=== PATIENT | male | born 1965 | race Caucasian/White ===

== ENCOUNTER → 2016-07-07 | Outpatient (CLI) | payer BC ==
[2016-07-07 18:37] LABS: HCT 43.4 % (39.0-53.0); HDW 2.74; HGB 14.8 gm/dL (13.0-17.5); MCH 29.5 pg (25.0-35.0); MCHC 34.2 g/dL (31.0-37.0); MCV 86.2 fL (80.0-100.0); Mean Platelet Volume 8.5; RBC 5.03 m/uL (4.30-5.90); RDW 13.4 % (11.5-15.5); WBC 8.8 k/uL (3.8-10.6)
[2016-07-07 18:49] LABS: ALT 38 U/L (21-72); AST 25 U/L (17-59); Alkaline Phosphatase 67 U/L (38-126); Anion Gap 9 mmol/L; Blood Urea Nitrogen 17 mg/dL (9-20); Calcium 9.4 mg/dL (8.4-10.2); Carbon Dioxide 28 mmol/L (22-30); Chloride 106 mmol/L (98-107); Glucose 90 mg/dL (74-99); Non-African American GFR(MDRD) >60 (>60 ml/min/1.73 sqM); Potassium 3.8 mmol/L (3.5-5.1); Sodium 143 mmol/L (137-145); Total Bilirubin 0.4 mg/dL (0.2-1.3); Total Protein 7.3 g/dL (6.3-8.2)
[2016-07-07 20:03] LABS: Appearance,Urine Clear (Clear); Bilirubin,Urine Negative (Negative); Glucose,Urine (UA) Negative (Negative); Ketones,Urine Negative (Negative); Leukocyte Esterase,Urine Negative (Negative); Nitrite,Urine Negative (Negative); Protein,Urine Negative (Negative); Specific Gravity,Urine 1.017 (1.001-1.035); UA Billing (MACRO vs. MICRO) CHEM; Urobilinogen,Urine <2.0 mg/dL (<2.0)
--- NOTE | 2016-07-07 20:20 | CT ---
EXAMINATION TYPE: CT abdomen pelvis w con DATE OF EXAM: 07/07/2016 8:09 PM COMPARISON: NONE HISTORY: RLQ PAIN, R/O APPENDICITIS CT DLP: 1776.8 mGycm Automated exposure control for dose reduction was used. TECHNIQUE: Helical acquisition of images was performed from the lung bases through the pelvis. CONTRAST: Performed with Oral Contrast and with IV Contrast, patient injected with 100 mL of Omnipaque 300. FINDINGS: Lung bases are clear. There is no pleural effusion. Heart size is normal. Liver spleen pancreas appear normal. Bile ducts are not dilated. Gallbladder is contracted. There is no adrenal mass. Kidneys show satisfactory contrast opacification. There is no hydronephrosi s. There is no retroperitoneal adenopathy. There is no ascites. I see no intestinal wall thickening. There are no dilated loops. Bladder distends smoothly. Appendix appears normal. The bony structures a ppear intact. There are spondylotic changes in the lumbar spine. There is multilevel lumbar spinal st enosis. IMPRESSION: NORMAL APPENDIX. NO SIGN OF ACUTE ABDOMEN AND PELVIS. THERE IS MULTILEVEL SEVERE LUMBAR SPINAL STENOSIS.
== END | disposition home or self-care (01) ==
LOC: RADCTMAIN 18:07
PROVIDERS: ATTEND Family Medicine
DX: R10.31 Right lower quadrant pain (principal)
CPT/HCPCS: 80053; 85027; 81003; 74177; 36415; Q9967

== ENCOUNTER 2021-03-20 12:42 | Inpatient (IN) | payer BC ==
[2021-03-20] MEDS ORDERED: ACETAMINOPHEN TAB 325 MG TAB PO STA (13:17)
[2021-03-20] MEDS ORDERED: SODIUM CHLORIDE 0.9% 500 ML 500 ML IV STA (13:47)
[2021-03-20] MEDS ORDERED: ASPIRIN 81 MG PO STA (13:48)
--- NOTE | 2021-03-20 13:55 | ED ---
General Adult HPI - General Chief complaint: Shortness of Breath Stated complaint: COVID+, SOB Time Seen by Provider: 03/20/21 13:40 Source: patient, RN notes reviewed, old records reviewed Mode of arrival: EMS Limitations: no limitations - History of Present Illness Initial comments: 55-year-old male, alert and oriented 4, presents to emergency room with difficulty in breathing worsening over the past 10 days. Patient states that he was diagnosed with Covid on March 18. He denies any nausea vomiting or diarrhea but does state that he has left-sided chest pain. He does have a history of hypertension. He was directed by his PCP to schedule a stress test with Dr. Amador but has not done so. His primary care doctor is Dr. Rajput. -: days(s) (10) Location: chest Radiation: non-radiation Consistency: constant Improves with: none Associated Symptoms: cough, shortness of breath - Related Data Home Medications Medication Instructions Recorded Confirmed Essential-1 Multivitamin 1 tab PO DAILY 03/20/21 03/20/21 Glucosamine-Chondroitin 2814-6473 1 tab PO DAILY 03/20/21 03/20/21 Mg amLODIPine [Norvasc] 5 mg PO DAILY 03/20/21 03/20/21 Allergies Allergy/AdvReac Type Severity Reaction Status Date / Time No Known Allergies Allergy Verified 03/20/21 15:43 Review of Systems ROS Statement: Those systems with pertinent positive or pertinent negative responses have been documented in the HPI. ROS Other: All systems not noted in ROS Statement are negative. Past Medical History Past Medical History: Hypertension, Prostate Disorder Additional Past Medical History / Comment(s): headaches History of Any Multi-Drug Resistant Organisms: None Reported Past Surgical History: Orthopedic Surgery Additional Past Surgical History / Comment(s): ACL repair rt knee Past Anesthesia/Blood Transfusion Reactions: No Reported Reaction Past Psychological History: No Psychological Hx Reported Smoking Status: Never smoker Past Alcohol Use History: Occasional Past Drug Use History: Marijuana - Past Family History Mother Family Medical History: Cancer General Exam Limitations: no limitations General appearance: alert, in distress (Dyspneic) Head exam: Present: atraumatic, normocephalic, normal inspection Eye exam: Present: normal appearance, EOMI ENT exam: Present: normal exam, normal oropharynx, mucous membranes moist Neck exam: Present: normal inspection, full ROM. Absent: tenderness, meningismus, lymphadenopathy Respiratory exam: Present: normal lung sounds bilaterally. Absent: respiratory distress, wheezes, rales, rhonchi, stridor Cardiovascular Exam: Present: tachycardia, irregular rhythm, normal heart flo nds. Absent: systolic murmur, diastolic murmur, rubs, gallop, clicks, JVD GI/Abdominal exam: Present: soft, normal bowel sounds. Absent: distended, tenderness, guarding, rebound, rigid Extremities exam: Present: normal inspection, full ROM, normal capillary refill. Absent: tenderness, pedal edema, joint swelling, calf tenderness Back exam: Present: normal inspection, full ROM. Absent: tenderness, CVA tenderness (R), CVA tenderness (L), rash noted Neurological exam: Present: alert, oriented X3 Psychiatric exam: Present: normal affect, normal mood, anxious Skin exam: Present: warm, dry, intact, normal color. Absent: rash Course Vital Signs 03/20/21 03/20/21 03/20/21 13:03 13:08 14:09 Temperature 102.4 F H Pulse Rate 104 H 120 H Respiratory 16 18 Rate Blood Pressure 157/88 148/97 O2 Sat by Pulse 98 97 Oximetry 03/20/21 03/20/21 15:00 17:04 Temperature 102.7 F H 99 F Pulse Rate 100 Respiratory 18 Rate Blood Pressure 148/97 O2 Sat by Pulse 97 Oximetry EKG Findings - EKG Results: EKG shows: atrial fibrillation (Ventricular rate of 124, QRS 0.84, QTC 0.462, atrial fibrillation rapid ventricular response) Medical Decision Making - Medical Decision Making This is a 55-year-old male, alert and oriented 4, presenting to the emergency room with worsening dyspnea over the past 10 days. Patient states that he t ested positive for coronavirus on March 18. He states his breathing has been getting significantly worse over the last few days. He also complains of left- sided chest pain. He does have a history of hypertension and is on amlodipine 5 mg. He denies any other medical history. He states that he was supposed to schedule a stress test with Dr. Amador in cardiology but he hasn't done that yet. There is no evidence of leukocytosis. His d-dimer is elevated at 1.58, potassium is 3.3, troponin is negative at 0.012, EKG shows atrial fibrillation with a rate of 120. CT imaging of the chest shows no evidence of pulmonary embolism. There is bilateral moderate patchy multifocal pneumonia. Patient was given a gram of Rocephin for community-acquired pneumonia. He was started on low-dose heparin for the new onset atrial fibrillation. Patient did have a fever which resolved and his heart rate normalized. He will be admitted to the hospital for pneumonia, new onset atrial fibrillation, with runs of ventricular tachycardia, and coronavirus. Case was discussed with Dr. Farooq. - Lab Data Result diagrams: 03/20/21 14:02 03/20/21 14:02 Lab Results 03/20/21 03/20/21 03/20/21 Range/Units 14:02 14:02 14:02 WBC 5.3 (3.8-10.6) k/uL RBC 5.10 (4.30-5.90) m/uL Hgb 15.5 (13.0-17.5) gm/dL Hct 43.7 (39.0-53.0) % MCV 85.7 (80.0-100.0) fL MCH 30.4 (25.0-35.0) pg MCHC 35.5 (31.0-37.0) g/dL RDW 12.7 (11.5-15.5) % Plt Count 110 L (150-450) k/uL MPV 10.7 Neutrophils % 79 % Lymphocytes % 14 % Monocytes % 5 % Eosinophils % 0 % Basophils % 0 % Neutrophils # 4.2 (1.3-7.7) k/uL Lymphocytes # 0.8 L (1.0-4.8) k/uL Monocytes # 0.3 (0-1.0) k/uL Eosinophils # 0.0 (0-0.7) k/uL Basophils # 0.0 (0-0.2) k/uL PT 10.5 (9.0-12.0) sec INR 1.0 (<1.2) APTT 24.6 (22.0-30.0) sec D-Dimer 1.58 H (<0.60) mg/L FEU Sodium 133 L (137-145) mmol/L Potassium 3.3 L (3.5-5.1) mmol/L Chloride 102 (98-107) mmol/L Carbon Dioxide 20 L (22-30) mmol/L Anion Gap 11 mmol/L BUN 12 (9-20) mg/dL Creatinine 0.79 (0.66-1.25) mg/dL Est GFR (CKD-EPI)AfAm >90 (>60 ml/min/1.73 sqM) Est GFR (CKD-EPI)NonAf >90 (>60 ml/min/1.73 sqM) Glucose 122 H (74-99) mg/dL Plasma Lactic Acid Chase (0.7-2.0) mmol/L Calcium 8.3 L (8.4-10.2) mg/dL Magnesium 1.9 (1.6-2.3) mg/dL Total Bilirubin 0.7 (0.2-1.3) mg/dL AST 63 H (17-59) U/L ALT 46 (4-49) U/L Alkaline Phosphatase 52 (38-126) U/L Troponin I (0.000-0.034) ng/mL NT-Pro-B Natriuret Pep pg/mL Total Protein 6.1 L (6.3-8.2) g/dL Albumin 3.2 L (3.5-5.0) g/dL 03/20/21 03/20/21 03/20/21 Range/Units 14:02 14:02 14:51 WBC (3.8-10.6) k/uL RBC (4.30-5.90) m/uL Hgb (13.0-17.5) gm/dL Hct (39.0-53.0) % MCV (80.0-100.0) fL MCH (25.0-35.0) pg MCHC (31.0-37.0) g/dL RDW (11.5-15.5) % Plt Count (150-450) k/uL MPV Neutrophils % % Lymphocytes % % Monocytes % % Eosinophils % % Basophils % % Neutrophils # (1.3-7.7) k/uL Lymphocytes # (1.0-4.8) k/uL Monocytes # (0-1.0) k/uL Eosinophils # (0-0.7) k/uL Basophils # (0-0.2) k/uL PT (9.0-12.0) sec INR (<1.2) APTT (22.0-30.0) sec D-Dimer (<0.60) mg/L FEU Sodium (137-145) mmol/L Potassium (3.5-5.1) mmol/L Chloride (98-107) mmol/L Carbon Dioxide (22-30) mmol/L Anion Gap mmol/L BUN (9-20) mg/dL Creatinine (0.66-1.25) mg/dL Est GFR (CKD-EPI)AfAm (>60 ml/min/1.73 sqM) Est GFR (CKD-EPI)NonAf (>60 ml/min/1.73 sqM) Glucose (74-99) mg/dL Plasma Lactic Acid Chase 2.0 (0.7-2.0) mmol/L Calcium (8.4-10.2) mg/dL Magnesium (1.6-2.3) mg/dL Total Bilirubin (0.2-1.3) mg/dL AST (17-59) U/L ALT (4-49) U/L Alkaline Phosphatase (38-126) U/L Troponin I <0.012 (0.000-0.034) ng/mL NT-Pro-B Natriuret Pep 172 pg/mL Total Protein (6.3-8.2) g/dL Albumin (3.5-5.0) g/dL Disposition Clinical Impression: New onset atrial fibrillation, Pneumonia, Ventricular tachycardia seen on director of cardiac cath lab, COVID-19 Disposition: ADMITTED IP TO THIS HOSP Decision Date: 03/20/21 Decision Time: 15:07
[2021-03-20 14:20] LABS: Basophils % (A) 0 %; Eosinophils % (A) 0 %; HCT 43.7 % (39.0-53.0); HGB 15.5 gm/dL (13.0-17.5); Lymphocytes # (A) 0.8 k/uL (1.0-4.8); Lymphocytes % (A) 14 %; MCH 30.4 pg (25.0-35.0); MCHC 35.5 g/dL (31.0-37.0); MCV 85.7 fL (80.0-100.0); Mean Platelet Volume 10.7; Monocytes # (A) 0.3 k/uL (0-1.0); Monocytes % (A) 5 %; Neutrophils # (A) 4.2 k/uL (1.3-7.7); Neutrophils % (A) 79 %; Platelet Count 110 k/uL (150-450); RDW 12.7 % (11.5-15.5); WBC 5.3 k/uL (3.8-10.6)
--- NOTE | 2021-03-20 14:28 | XR ---
EXAMINATION TYPE: XR chest 2V DATE OF EXAM: 03/20/2021 COMPARISON: None INDICATION: Dyspnea TECHNIQUE: Single frontal view of the chest is obtained. FINDINGS: The heart size is normal. The pulmonary vasculature is normal. Patchy infiltrates are present through the bilateral lung peripheries. Findings can be associated wit h atypical pneumonia. IMPRESSION: 1. Atypical pneumonia
[2021-03-20 14:32] LABS: ALT 46 U/L (4-49); AST 63 U/L (17-59); African American GFR (CKD) >90 (>60 ml/min/1.73 sqM); Albumin 3.2 g/dL (3.5-5.0); Alkaline Phosphatase 52 U/L (38-126); Anion Gap 11 mmol/L; Blood Urea Nitrogen 12 mg/dL (9-20); Calcium 8.3 mg/dL (8.4-10.2); Carbon Dioxide 20 mmol/L (22-30); Chloride 102 mmol/L (98-107); Glucose 122 mg/dL (74-99); Magnesium 1.9 mg/dL (1.6-2.3); Non-African American GFR(CKD) >90 (>60 ml/min/1.73 sqM); Potassium 3.3 mmol/L (3.5-5.1); Sodium 133 mmol/L (137-145); Total Bilirubin 0.7 mg/dL (0.2-1.3); Total Protein 6.1 g/dL (6.3-8.2)
[2021-03-20] MEDS ORDERED: cefTRIAXone IN SWFI 1,000 MG/10 ML SYRINGE IVP STA (14:37)
[2021-03-20 14:38] LABS: Partial Thromboplastin Time 24.6 sec (22.0-30.0); Prothrombin Time 10.5 sec (9.0-12.0)
[2021-03-20] MEDS ORDERED: POTASSIUM CHLORIDE ER 20 MEQ TAB.ER PO STA (14:46)
[2021-03-20] MEDS ORDERED: HEPARIN SODIUM 1,000 UN/ML (10ML VL) IV ONE (15:00)
[2021-03-20] MEDS ORDERED: HEPARIN SODIUM 1,000 UN/ML (10ML VL) IV PRN (15:00)
[2021-03-20] MEDS ORDERED: IBUPROFEN 800 MG TAB PO STA (15:02)
[2021-03-20] MEDS ORDERED: HEPARIN SOD,PORK IN 0.45% NACL 25,000 UNIT in 0.45% NACL 1 250ML.BAG IV SCH (15:15)
[2021-03-20] MEDS ORDERED: PANTOPRAZOLE 40 MG/10 ML VIAL IVP STA (15:16)
[2021-03-20] MEDS ORDERED: IBUPROFEN 400 MG TAB PO PRN (15:21)
[2021-03-20] MEDS ORDERED: NALOXONE 0.4 MG/ML 1 ML VIAL IV PRN (15:21)
[2021-03-20] MEDS ORDERED: 0.9% NACL WITH KCL 20 MEQ/L 1,000 ML IV SCH (16:00)
--- NOTE | 2021-03-20 16:56 | CT ---
EXAMINATION TYPE: CT chest angio for PE DATE OF EXAM: 03/20/2021 COMPARISON: None HISTORY: Cough and shortness of breath. CT DLP: 615.1 mGycm Automated exposure control for dose reduction was used. CONTRAST: Performed with IV Contrast, patient injected with 100 mL of Isovue 370. There are 3-D post processed images. There are patchy bilateral pulmonary interstitial and air space infiltrates in the upper and lower lo bes bilaterally. There is no mediastinal adenopathy. There are no hilar masses. There are bilateral e nlarged multiple bronchial lymph nodes up to 1 cm. There is normal contrast opacification of the pulmonary arteries. There are no filling defects. The t horacic aorta is intact. There is no aneurysm or dissection. Thoracic spine is intact. Sternum is int act. The upper abdominal soft tissues are intact. IMPRESSION: No evidence of pulmonary embolism. Bilateral moderate patchy multifocal pneumonia.
[2021-03-21] MEDS: MAG HYDROX/AL HYDROX/SIMETH 30 ML CUP PO PRN (01:43)
[2021-03-21] MEDS ORDERED: IOPAMIDOL CONTRAST (ORAL USE) VIAL PO PRN (03:46)
[2021-03-21] MEDS: PANTOPRAZOLE 40 MG/10 ML VIAL IVP SCH ×2 (04:01→20:17)
[2021-03-21] MEDS: HYDROmorphone 1 MG/ML 1 ML SYRINGE IVP PRN ×3 (04:01→22:46)
[2021-03-21 04:16] LABS: Basophils % (A) 0 %; Eosinophils % (A) 0 %; HCT 42.5 % (39.0-53.0); HGB 14.8 gm/dL (13.0-17.5); Lymphocytes # (A) 0.5 k/uL (1.0-4.8); Lymphocytes % (A) 8 %; MCH 30.6 pg (25.0-35.0); MCHC 34.9 g/dL (31.0-37.0); MCV 87.6 fL (80.0-100.0); Mean Platelet Volume 11.1; Monocytes # (A) 0.2 k/uL (0-1.0); Monocytes % (A) 3 %; Neutrophils # (A) 5.4 k/uL (1.3-7.7); Neutrophils % (A) 88 %; Platelet Count 119 k/uL (150-450); RBC 4.85 m/uL (4.30-5.90); RDW 12.8 % (11.5-15.5); WBC 6.2 k/uL (3.8-10.6)
--- NOTE | 2021-03-21 04:36 | CT ---
EXAMINATION TYPE: CT abdomen pelvis wo con DATE OF EXAM: 03/21/2021 COMPARISON: 07/07/2016 HISTORY: abd pain with distension CT DLP: 1309 mGycm Automated exposure control for dose reduction was used. There is extensive patchy interstitial and airspace infiltrate at the visualized lung bases. Heart is borderline enlarged. There is no pericardial effusion. There is no pleural effusion. Liver spleen pancreas stomach appear intact. Gallbladder appears normal. The bile ducts are not dilat ed. There is no adrenal mass. Kidneys have normal size. There is some contrast in the kidneys from recent CT scan. There is no hydronephrosis. Ureters are not dilated. There is no retroperitoneal adenopathy. Appendix is posterior and appears normal. Bladder distends smoothly. There is no inguinal hernia. There is no free fluid in the pelvis. There is no pelvic mass. There are multiple sigmoid diverticula. There is no diverticulitis. There is no mesenteric edema. There is no ascites or free air. There is no bowel obstruction. Lumbar vertebra have normal alignment. There is vacuum disc at L5-S1. There is no compression fractur e. The bony pelvis is intact. Hip joints are intact. There is moderately severe spinal stenosis at multiple levels in the lumbar spine from L2 to S1. IMPRESSION: Normal appendix. Sigmoid diverticulosis. No acute abnormality within the abdomen pelvis. There are extensive lower lobe patchy pulmonary infiltrates consistent with multifocal pneumonia whic h is a change compared to old exam. Severe multilevel lumbar spinal stenosis.
[2021-03-21 04:54] LABS: African American GFR (CKD) >90 (>60 ml/min/1.73 sqM); Anion Gap 8 mmol/L; Blood Urea Nitrogen 12 mg/dL (9-20); Calcium 7.4 mg/dL (8.4-10.2); Carbon Dioxide 19 mmol/L (22-30); Chloride 110 mmol/L (98-107); Glucose 118 mg/dL (74-99); Non-African American GFR(CKD) >90 (>60 ml/min/1.73 sqM); Potassium 5.3 mmol/L (3.5-5.1); Sodium 137 mmol/L (137-145)
[2021-03-21] MEDS: METOPROLOL SUCCINATE (ER) 25 MG TAB.ER.24H PO SCH (09:36)
[2021-03-21] MEDS: APIXABAN 5 MG TAB PO SCH ×2 (09:36→20:17)
[2021-03-21] MEDS: SODIUM CHLORIDE 0.9% 1,000 ML IV SCH (09:37)
[2021-03-21] MEDS: ACETAMINOPHEN TAB 325 MG TAB PO PRN ×2 (09:44→16:25)
[2021-03-21] MEDS: CHOLECALCIFEROL 25 MCG (1000 IU) TABLET PO SCH (09:45)
[2021-03-21] MEDS ORDERED: CHONDROITIN PO SCH (09:45)
[2021-03-21] MEDS ORDERED: GLUCOSAMINE PO SCH (09:45)
[2021-03-21] MEDS: ZINC SULFATE 220 MG CAP PO SCH (09:45)
[2021-03-21] MEDS: MULTIVITAMINS, THERA 1 EACH TAB PO SCH (09:45)
[2021-03-21] MEDS: ASCORBIC ACID 500 MG TAB PO SCH ×2 (09:45→20:17)
[2021-03-21] MEDS: amLODIPine 5 MG TAB PO SCH (09:45)
--- NOTE | 2021-03-21 11:05 | P.CRDCN ---
History of Present Illness Consult date: 03/21/21 History of present illness: CHIEF COMPLAINT: afib with RVR HISTORY OF PRESENT ILLNESS: This is a 55 year old male with a past medical history significant for hypertension. 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 We have been asked to see the patient in consultation for atrial fibrillation with RVR. The patient presented to the ER with a chief complaint of shortness of breath. He was found to be positive for Covid. The patient did not receive the Covid vaccination. The patient was also found to be in atrial fibrillation with RVR. The patient does not have a history of atrial fibrillation. Patient is currently maintaining sinus mechanism. He was started on IV heparin. Blood pressure 132/86. He is febrile this morning with a temperature of 100.8F. He is on room air with oxygen saturations greater than 92%. DIAGNOSTICS: EKG reveals A. fib with RVR Chest xray atypical pneumonia Chest CTA: No evidence of pulmonary embolism. Bilateral moderate patchy multifocal pneumonia. Laboratory data: WBC 6.2. Hemoglobin 14.8. Platelet count 119. D-dimer 1.58. Sodium 137. Potassium 5.3. BUN 12. Creatinine 0.79. Lactic acid 2.0. Troponin 0.012. ProBNP 172. Current home cardiac medications include Norvasc 5 mg daily REVIEW OF SYSTEMS: Thorough review of systems not completed secondary to limited evaluation/examination due to Covid19 PHYSICAL EXAM: Thorough physical exam not completed secondary to limited evaluation/examination due to Covid19 ASSESSMENT: Shortness of breath Covid 19 pneumonia New-onset paroxysmal atrial fibrillation Hypertension PLAN: Obtain 2D echo to assess cardiac structure and function Check TSH Begin metoprolol succinate 25mg daily Continue telemetry monitoring Patient has CHADVASC score of 1. However, recommend anticoagulation for at least 6 weeks Discontinue IV heparin. Begin Eliquis 5 mg twice a day. Case management consulted for Eliquis co-pay Patient to follow up with Dr. Torres Further recommendations pending patient course Nurse practitioner note has been reviewed by physician. Signing provider agrees with the documented findings, assessment, and plan of care. Past Medical History Past Medical History: Hypertension, Prostate Disorder Additional Past Medical History / Comment(s): headaches History of Any Multi-Drug Resistant Organisms: None Reported Past Surgical History: Orthopedic Surgery Additional Past Surgical History / Comment(s): ACL repair rt knee Past Anesthesia/Blood Transfusion Reactions: No Reported Reaction Past Psychological History: No Psychological Hx Reported Smoking Status: Never smoker Past Alcohol Use History: Occasional Past Drug Use History: Marijuana - Past Family History Mother Family Medical History: Cancer Medications and Allergies Home Medications Medication Instructions Recorded Confirmed Type Essential-1 Multivitamin 1 tab PO DAILY 03/20/21 03/20/21 History Glucosamine-Chondroitin 6452-1279 1 tab PO DAILY 03/20/21 03/20/21 History Mg amLODIPine [Norvasc] 5 mg PO DAILY 03/20/21 03/20/21 History Apixaban [Eliquis] 5 mg PO BID #60 tab 03/21/21 Rx Allergies Allergy/AdvReac Type Severity Reaction Status Date / Time No Known Allergies Allergy Verified 03/20/21 15:43 Physical Exam Vitals: Vital Signs Temp Pulse Pulse Pulse Resp BP BP 03/21/21 08:00 100.8 F H 109 H 18 132/86 03/21/21 02:32 98.7 F 102 H 18 143/86 03/21/21 01:57 102 H 17 03/20/21 23:26 99.3 F 102 H 17 136/79 03/20/21 20:00 98.8 F 95 95 18 136/84 03/20/21 17:04 99 F 100 18 148/97 03/20/21 15:00 102.7 F H 03/20/21 14:09 120 H 18 148/97 03/20/21 13:08 102.4 F H 03/20/21 13:03 104 H 16 157/88 Pulse Ox 03/21/21 08:00 95 03/21/21 02:32 96 03/21/21 01:57 03/20/21 23:26 93 L 03/20/21 20:00 97 03/20/21 17:04 97 03/20/21 15:00 03/20/21 14:09 97 03/20/21 13:08 03/20/21 13:03 98 Intake and Output 03/20/21 03/21/21 03/21/21 22:59 06:59 14:59 Intake Total 178.667 487.699 268 Balance 178.667 487.699 268 Intake: IV 150 0.9% NaCl with KCl 20 Meq 150 /l 1,000 ml @ 50 mls/hr IV .Q20H [facility] Rx#: [id number] Intake, IV Titration 60.667 487.699 Amount 0.9% NaCl with KCl 20 Meq 400 /l 1,000 ml @ 50 mls/hr IV .Q20H [facility] Rx#: [id number] Heparin Sod,Pork in 0.45% 60.667 87.699 NaCl 25,000 unit In 0.45 % NaCl 1 250ml.bag @ 8. 319 UNITS/KG/HR 10 mls/hr IV .Q24H [facility] Rx#: [id number] Oral 118 118 Other: Voiding Method Urinal Urinal Urinal # Voids 0 1 # Bowel Movements 0 Weight 120.202 kg 90 kg Results 03/21/21 03:38 03/21/21 03:38 Cardiac Enzymes 03/20/21 03/20/21 Range/Units 14:02 14:02 AST 63 H (17-59) U/L Troponin I <0.012 (0.000-0.034) ng/mL Coagulation 03/20/21 03/20/21 03/21/21 Range/Units 14:02 20:45 03:38 PT 10.5 11.0 (9.0-12.0) sec APTT 24.6 39.3 H 39.0 H (22.0-30.0) sec CBC 03/20/21 03/21/21 Range/Units 14:02 03:38 WBC 5.3 6.2 (3.8-10.6) k/uL RBC 5.10 4.85 (4.30-5.90) m/uL Hgb 15.5 14.8 (13.0-17.5) gm/dL Hct 43.7 42.5 (39.0-53.0) % Plt Count 110 L 119 L (150-450) k/uL Comprehensive Metabolic Panel 03/20/21 03/21/21 Range/Units 14:02 03:38 Sodium 133 L 137 (137-145) mmol/L Potassium 3.3 L 5.3 H (3.5-5.1) mmol/L Chloride 102 110 H (98-107) mmol/L Carbon Dioxide 20 L 19 L (22-30) mmol/L BUN 12 12 (9-20) mg/dL Creatinine 0.79 0.79 (0.66-1.25) mg/dL Glucose 122 H 118 H (74-99) mg/dL Calcium 8.3 L 7.4 L (8.4-10.2) mg/dL AST 63 H (17-59) U/L ALT 46 (4-49) U/L Alkaline Phosphatase 52 (38-126) U/L Total Protein 6.1 L (6.3-8.2) g/dL Albumin 3.2 L (3.5-5.0) g/dL Current Medications Generic Name Dose Route Start Last Admin Trade Name Freq PRN Reason Stop Dose Admin Acetaminophen 650 mg 03/20/21 15:21 03/21/21 09:44 Acetaminophen Tab 325 Mg Tab PO 650 mg Q6HR PRN Administration Mild Pain or Fever > 100.5 Al Hydroxide/Mg Hydroxide 20 ml 03/21/21 01:34 03/21/21 01:43 Mag Hydrox/Al Hydrox/Simeth 30 Ml Cup PO 20 ml QID PRN Administration GI Upset Amlodipine Besylate 5 mg 03/21/21 09:45 03/21/21 09:45 Amlodipine 5 Mg Tab PO 5 mg DAILY [facility] Administration Apixaban 5 mg 03/21/21 09:15 03/21/21 09:36 Apixaban 5 Mg Tab PO 5 mg BID [facility] Administration Protocol Ascorbic Acid 500 mg 03/21/21 09:45 03/21/21 09:45 Ascorbic Acid 500 Mg Tab PO 500 mg BID [facility] Administration Cholecalciferol 25 mcg 03/21/21 09:45 12 09:45 Cholecalciferol 25 Mcg (1000 Iu) Tablet PO 25 mcg DAILY [facility] Administration Hydromorphone HCl 1 mg 03/21/21 03:49 03/21/21 04:01 Hydromorphone 1 Mg/Ml 1 Ml Syringe IVP 1 mg Q4HR PRN Administration Pain Sodium Chloride 1,000 mls @ 50 mls/hr 03/21/21 09:30 03/21/21 09:37 Saline 0.9% IV 50 mls/hr .Q20H [facility] Administration Ibuprofen 400 mg 03/20/21 15:21 Ibuprofen 400 Mg Tab PO Q6HR PRN Mild Pain or Fever > 100.5 Metoprolol Succinate 25 mg 03/21/21 09:15 03/21/21 09:36 Metoprolol Succinate (Er) 25 Mg Tab.Er.24h PO 25 mg DAILY [facility] Administration Multivitamins 1 each 03/21/21 09:45 03/21/21 09:45 Multivitamins, Thera 1 Each Tab PO 1 each DAILY [facility] Administration Naloxone HCl 0.2 mg 03/20/21 15:21 Naloxone 0.4 Mg/Ml 1 Ml Vial IV Q2M PRN Opioid Reversal Pantoprazole Sodium 40 mg 03/21/21 09:00 03/21/21 04:01 Pantoprazole 40 Mg/10 Ml Vial IVP 40 mg BID [facility] Administration Zinc Sulfate 220 mg 03/21/21 09:45 03/21/21 09:45 Zinc Sulfate 220 Mg Cap PO 220 mg DAILY [facility] Administration Intake and Output 03/20/21 03/21/21 03/21/21 22:59 06:59 14:59 Intake Total 178.667 487.699 268 Balance 178.667 487.699 268 Intake: IV 150 0.9% NaCl with KCl 20 Meq 150 /l 1,000 ml @ 50 mls/hr IV .Q20H [facility] Rx#: [id number] Intake, IV Titration 60.667 487.699 Amount 0.9% NaCl with KCl 20 Meq 400 /l 1,000 ml @ 50 mls/hr IV .Q20H [facility] Rx#: [id number] Heparin Sod,Pork in 0.45% 60.667 87.699 NaCl 25,000 unit In 0.45 % NaCl 1 250ml.bag @ 8. 319 UNITS/KG/HR 10 mls/hr IV .Q24H [facility] Rx#: [id number] Oral 118 118 Other: Voiding Method Urinal Urinal Urinal # Voids 0 1 # Bowel Movements 0 Weight 120.202 kg 90 kg 03/21/21 03:38 03/21/21 03:38
[2021-03-21 11:22] VITALS: BMI 30.2
--- NOTE | 2021-03-21 12:50 | ECHOF ---
Referral Reason:LV function MEASUREMENTS -------- HEIGHT: 172.7 cm WEIGHT: 89.8 kg BP: 143/86 IVSd: 1.1 cm (0.6 - 1.1) LVIDd: 5.0 cm (3.9 - 5.3) LVPWd: 1.1 cm (0.6 - 1.1) EDV(Teich): 117 ml IVSs: 1.6 cm LVIDs: 3.4 cm LVPWs: 1.9 cm %IVS Thck: 44 % ESV(Teich): 49 ml EF(Teich): 58 % %FS: 31 % SV(Teich): 68 ml LA Diam: 3.7 cm (2.7 - 3.8) RVIDd: 2.8 cm (< 3.3) Ao Diam: 3.5 cm (2.0 - 3.7) AV Cusp: 2.5 cm (1.5 - 2.6) EPSS: 0.3 cm MV E Fili: 1.02 m/s MV DecT: 176 ms MV Dec [place]: 5.8 m/s MV A Fili: 0.96 m/s MV E/A Ratio: 1.06 MV PHT: 51 ms LVOT Vmax: 1.52 m/s LVOT maxP.23 mmHg AV Vmax: 2.07 m/s AV maxP.12 mmHg AV Vmax: 2.05 m/s AV Vmean: 1.32 m/s AV maxP.76 mmHg AV meanP.30 mmHg AV Env.Ti: 240 ms AV VTI: 31.6 cm MV EF SLOPE: 94.03 mm/s (70 - 150) MV EXCURSION: 24.64 mm (> 18.000) FINDINGS -------- Resting tachycardia (HR>100bpm). This was a technically adequate study. The left ventricular size is normal. There is borderline concentric left ventricular hypertrophy. Overall left ventricular systolic function is normal with, an EF between 60 - 65 %. The right ventricle is normal in size. The left atrium is normal in size. The right atrium is normal in size. Interatrial and interventricular septum intact. The aortic valve was not well visualized. Peak/mean gradient across the Aortic Valve is 16.76mmHg / 8.30mmHg. There is trace to mild mitral regurgitation. The tricuspid valve appears structurally normal. Unable to estimate RVSP due to inadequate TR jet s pectral doppler profile. The pulmonic valve was not well visualized. The aortic root size is normal. Normal inferior vena cava with normal inspiratory collapse consistent with estimated right atrial pre ssure of 5 mmHg. There is no pericardial effusion. CONCLUSIONS -------- 1. The left ventricular size is normal. 2. There is borderline concentric left ventricular hypertrophy. 3. Overall left ventricular systolic function is normal with, an EF between 60 - 65 %. 4. Peak/mean gradient across the Aortic Valve is 16.76mmHg / 8.30mmHg. 5. There is trace to mild mitral regurgitation. 6. There is no pericardial effusion. MARKETING FINANCIAL ANALYST: Alyson Panda RDCS
--- NOTE | 2021-03-21 17:16 | P.HPIM ---
History of Present Illness H&P Date: 03/21/21 Chief Complaint: Dyspnea, chest pain/palpitations This is a 55-year-old gentleman with past medical history of hypertension, prostate disorder, headaches occasional marijuana use presented to the ER with worsening dyspnea over the last 10 days, reporting that he was diagnosed with Covid-19 on March 18. Patient also complained of nonradiating constant left- sided chest pain. Denies nausea vomiting or diarrhea, complains of abdominal pain.abdomen/pelvis CT reported no acute abnormality, sigmoid diverticulosis ,moderately severe spinal stenosis at multiple levels in the lumbar spine from L2 to S1 .D-dimer elevated at 1.58, chest CTA reported no evidence of pulmonary embolism. There is bilateral moderate patchy multifocal pneumonia. Chest x-ray reported atypical pneumonia. Received Rocephin in the ER .Potassium is 3.3, troponin negative 1, EKG reported atrial fibrillation with a ventricular rate in 120s. ER reports runs of ventricular tachycardia. Heparin drip initiated. T-max 102.7. Lactic acid 2. Review of Systems ROS Statement: Those systems with pertinent positive or pertinent negative responses have been documented in the HPI. ROS Other: All systems not noted in ROS Statement are negative. Past Medical History Past Medical History: Hypertension, Prostate Disorder Additional Past Medical History / Comment(s): headaches History of Any Multi-Drug Resistant Organisms: None Reported Past Surgical History: Orthopedic Surgery Additional Past Surgical History / Comment(s): ACL repair rt knee Past Anesthesia/Blood Transfusion Reactions: No Reported Reaction Past Psychological History: No Psychological Hx Reported Smoking Status: Never smoker Past Alcohol Use History: Occasional Past Drug Use History: Marijuana - Past Family History Mother Family Medical History: Cancer Medications and Allergies Home Medications Medication Instructions Recorded Confirmed Type Essential-1 Multivitamin 1 tab PO DAILY 03/20/21 03/20/21 History Glucosamine-Chondroitin 8161-4569 1 tab PO DAILY 03/20/21 03/20/21 History Mg amLODIPine [Norvasc] 5 mg PO DAILY 03/20/21 03/20/21 History Apixaban [Eliquis] 5 mg PO BID #60 tab 03/21/21 Rx Allergies Allergy/AdvReac Type Severity Reaction Status Date / Time No Known Allergies Allergy Verified 03/20/21 15:43 Physical Exam Vitals: Vital Signs Temp Pulse Pulse Pulse Resp BP BP 03/21/21 14:00 96 18 03/21/21 11:49 98.5 F 96 18 150/88 03/21/21 08:00 100.8 F H 109 H 18 132/86 03/21/21 02:32 98.7 F 102 H 18 143/86 03/21/21 01:57 102 H 17 03/20/21 23:26 99.3 F 102 H 17 136/79 03/20/21 20:00 98.8 F 95 95 18 136/84 03/20/21 17:04 99 F 100 18 148/97 Pulse Ox 03/21/21 14:00 03/21/21 11:49 95 03/21/21 08:00 95 03/21/21 02:32 96 03/21/21 01:57 03/20/21 23:26 93 L 03/20/21 20:00 97 03/20/21 17:04 97 Intake and Output 03/21/21 03/21/21 03/21/21 06:59 14:59 22:59 Intake Total 487.699 508 Balance 487.699 508 Intake: IV 150 0.9% NaCl with KCl 20 Meq 150 /l 1,000 ml @ 50 mls/hr IV .Q20H [facility] Rx#: [id number] Intake, IV Titration 487.699 Amount 0.9% NaCl with KCl 20 Meq 400 /l 1,000 ml @ 50 mls/hr IV .Q20H [facility] Rx#: [id number] Heparin Sod,Pork in 0.45% 87.699 NaCl 25,000 unit In 0.45 % NaCl 1 250ml.bag @ 8. 319 UNITS/KG/HR 10 mls/hr IV .Q24H [facility] Rx#: [id number] Oral 358 Other: Voiding Method Urinal Urinal # Voids 1 Weight 90 kg 90 kg PHYSICAL EXAM: VITAL SIGNS: As above GENERAL: Sitting up at side of bed, no acute distress HEENT: Conjunctivae normal. eyes normal. NECK: No JVD. No thyroid enlargement. No LNs CARDIOVASCULAR: S1, S2 regular.No murmur RESPIRATION: Breath sounds diminished in the bases. No rhonchi or crackles. No bronchial breathing. ABDOMEN: Soft, nontender . No guarding. no masses palpable. No ascites, No hepatosplenomegaly.Bowel sounds heard. LEGS: No edema. no swelling PSYCHIATRY: Alert and oriented X3, mood and affect normal. NERVOUS SYSTEM: Cranial N 2-12 grossly normal. Moves all 4 limbs. No focal deficits. Strength and sensation grossly intact.. Skin: Warm and dry, no rash Results CBC & Chem 7: 03/21/21 03:38 03/21/21 03:38 Labs: Abnormal Lab Results - Last 24 Hours (Table) 03/20/21 03/21/21 03/21/21 Range/Units 20:45 03:38 03:38 Plt Count 119 L (150-450) k/uL Lymphocytes # 0.5 L (1.0-4.8) k/uL APTT 39.3 H 39.0 H (22.0-30.0) sec Potassium (3.5-5.1) mmol/L Chloride (98-107) mmol/L Carbon Dioxide (22-30) mmol/L Glucose (74-99) mg/dL Calcium (8.4-10.2) mg/dL Lactate Dehydrogenase (313-618) U/L C-Reactive Protein (<1.0) mg/dL 03/21/21 03/21/21 Range/Units 03:38 11:20 Plt Count (150-450) k/uL Lymphocytes # (1.0-4.8) k/uL APTT (22.0-30.0) sec Potassium 5.3 H (3.5-5.1) mmol/L Chloride 110 H (98-107) mmol/L Carbon Dioxide 19 L (22-30) mmol/L Glucose 118 H (74-99) mg/dL Calcium 7.4 L (8.4-10.2) mg/dL Lactate Dehydrogenase 1167 H (313-618) U/L C-Reactive Protein 6.0 H (<1.0) mg/dL Thrombosis Risk Factor Assmnt - Choose All That Apply Any of the Below Risk Factors Present?: Yes Each Factor Represents 1 point: Age 41-60 years, Obesity (BMI >25) Thrombosis Risk Factor Assessment Total Risk Factor Score: 2 Thrombosis Risk Factor Assessment Level: Low Risk Assessment and Plan Assessment: Acute Covid 19 pneumonia, unvaccinated. Initially tested positive on March 18. Paroxysmal atrial fibrillation with RVR, new onset Runs of nonsustained V. tach in ER Sigmoid diverticulosis Several multilevel lumbar spinal stenosis Obesity, BMI 30.2 Hypokalemia Hyponatremia, mild Plan: Continue current medication regime ,monitoring and symptomatic treatment. Blood cultures ordered.Covid cocktail initiated. Maintain heparin drip. Cardiology and pulmonary consults in place with recommendations pending. Echo pending. Labs pending. Pro-calcitonin, LDH, CRP ordered. Prognosis guarded given multiple complex medical issues. The impression and plan of care has been dictated as directed. : I performed a history and examination of this patient, discussed the same with the dictator. I agree with the dictator's note ,documented as a scribe. Any additional findings or plans will be noted.
[2021-03-21] MEDS ORDERED: REMDESIVIR 200 MG in SODIUM CHLORIDE 0.9% 250 ML IVPB ONE (18:00)
--- NOTE | 2021-03-21 18:04 | P.CNPUL ---
History of Present Illness Consult date: 03/21/21 Requesting physician: Deniz Rajput Reason for consult: dyspnea Chief complaint: Shortness of breath, A. fib with RVR History of present illness: 55-year-old white male patient who presented to the emergency department on 03/20/2021 with complaints of worsening shortness of breath over several days. Patient was diagnosed with COVID-19 on March 18. he did not receive his COVID-19 vaccination. He has developed left-sided chest pain. He does have a history of hypertension, prostate disorder, occasional marijuana use. Patient was found to be in A. fib with RVR in the emergency department with a rate of 127 BPM. Chest x-ray showed patchy infiltrates through the bilateral lung peripheries and findings were suggestive of atypical pneumonia. D-dimer was 1.58, CT angiogram of the chest has been completed showing no evidence of PE, and bilateral moderate patchy multifocal pneumonia. he was also complaining of abdominal pain with distention and abdominal CT showed sigmoid diverticulosis, no acute abnormality within the abdomen and pelvis. Patient was started on empiric antibiotics in the emergency department, he was given IV hydration, he was started on Toprol-XL, he was seen by cardiology in consultation. And started on Eliquis for anticoagulation. He seen on selective care unit, he still continues to be febrile with a temp of 101.7F, heart rate is better controlled, however he still slightly tachycardic with a rate of 96-[address] angiogram of the chest showed bilateral moderate patchy multifocal pneumonia. Review of Systems All systems: negative Constitutional: Denies chills, Denies fever Eyes: denies blurred vision, denies pain Ears, nose, mouth and throat: Denies headache, Denies sore throat Cardiovascular: Reports chest pain, Denies shortness of breath Respiratory: Reports dyspnea, Denies cough Gastrointestinal: Denies abdominal pain, Denies diarrhea, Denies nausea, Denies vomiting Musculoskeletal: Denies myalgias Integumentary: Denies pruritus, Denies rash Neurological: Denies numbness, Denies weakness Psychiatric: Denies anxiety, Denies depression Endocrine: Denies fatigue, Denies weight change Past Medical History Past Medical History: Hypertension, Prostate Disorder Additional Past Medical History / Comment(s): headaches History of Any Multi-Drug Resistant Organisms: None Reported Past Surgical History: Orthopedic Surgery Additional Past Surgical History / Comment(s): ACL repair rt knee Past Anesthesia/Blood Transfusion Reactions: No Reported Reaction Past Psychological History: No Psychological Hx Reported Smoking Status: Never smoker Past Alcohol Use History: Occasional Past Drug Use History: Marijuana - Past Family History Mother Family Medical History: Cancer Medications and Allergies Home Medications Medication Instructions Recorded Confirmed Type Essential-1 Multivitamin 1 tab PO DAILY 03/20/21 03/20/21 History Glucosamine-Chondroitin 8968-9151 1 tab PO DAILY 03/20/21 03/20/21 History Mg amLODIPine [Norvasc] 5 mg PO DAILY 03/20/21 03/20/21 History Apixaban [Eliquis] 5 mg PO BID #60 tab 03/21/21 Rx Allergies Allergy/AdvReac Type Severity Reaction Status Date / Time No Known Allergies Allergy Verified 03/20/21 15:43 Physical Exam Vitals: Vital Signs Temp Pulse Pulse Resp BP Pulse Ox 03/21/21 16:00 101.7 F H 103 H 20 158/81 96 03/21/21 14:00 96 18 03/21/21 11:49 98.5 F 96 18 150/88 95 03/21/21 08:00 100.8 F H 109 H 18 132/86 95 03/21/21 02:32 98.7 F 102 H 18 143/86 96 03/21/21 01:57 102 H 17 03/20/21 23:26 99.3 F 102 H 17 136/79 93 L 03/20/21 20:00 98.8 F 95 95 18 136/84 97 Intake and Output 03/21/21 03/21/21 03/21/21 06:59 14:59 22:59 Intake Total 487.699 508 Balance 487.699 508 Intake: IV 150 0.9% NaCl with KCl 20 Meq 150 /l 1,000 ml @ 50 mls/hr IV .Q20H [facility] Rx#: [id number] Intake, IV Titration 487.699 Amount 0.9% NaCl with KCl 20 Meq 400 /l 1,000 ml @ 50 mls/hr IV .Q20H [facility] Rx#: [id number] Heparin Sod,Pork in 0.45% 87.699 NaCl 25,000 unit In 0.45 % NaCl 1 250ml.bag @ 8. 319 UNITS/KG/HR 10 mls/hr IV .Q24H [facility] Rx#: [id number] Oral 358 Other: Voiding Method Urinal Urinal # Voids 1 Weight 90 kg 90 kg Results - Laboratory Findings CBC and BMP: 03/21/21 03:38 03/21/21 03:38 PT/INR, D-dimer PT 11.0 sec (9.0-12.0) 03/21/21 03:38 INR 1.0 (<1.2) 03/21/21 03:38 D-Dimer 1.58 mg/L FEU (<0.60) H 03/20/21 14:02 Abnormal lab findings: Abnormal Labs 03/20/21 03/20/21 03/20/21 14:02 14:02 14:02 Plt Count 110 L Lymphocytes # 0.8 L APTT D-Dimer 1.58 H Sodium 133 L Potassium 3.3 L Chloride Carbon Dioxide 20 L Glucose 122 H Calcium 8.3 L AST 63 H Lactate Dehydrogenase C-Reactive Protein Total Protein 6.1 L Albumin 3.2 L Coronavirus (PCR) 03/20/21 03/20/21 03/21/21 15:44 20:45 03:38 Plt Count 119 L Lymphocytes # 0.5 L APTT 39.3 H D-Dimer Sodium Potassium Chloride Carbon Dioxide Glucose Calcium AST Lactate Dehydrogenase C-Reactive Protein Total Protein Albumin Coronavirus (PCR) Detected A 03/21/21 03/21/21 03/21/21 03:38 03:38 11:20 Plt Count Lymphocytes # APTT 39.0 H D-Dimer Sodium Potassium 5.3 H Chloride 110 H Carbon Dioxide 19 L Glucose 118 H Calcium 7.4 L AST Lactate Dehydrogenase 1167 H C-Reactive Protein 6.0 H Total Protein Albumin Coronavirus (PCR) - Diagnostic Findings Chest x-ray: report reviewed, image reviewed CT scan - chest: report reviewed, image reviewed Additional studies: CT of the abdomen and pelvis results, CT angiogram of the chest, EKG, chest x- ray and echocardiogram reviewed Assessment and Plan Plan: Assessment: #1. Acute COVID-19 related pneumonia, patient was diagnosed on 03/18/2021, patient will be started on Remdesivir on 03/21/2021. He is a nonvaccinated adult #2. A. fib with RVR on presentation, currently better control, patient was started on Toprol-XL, and Eliquis #3. Elevated d-dimer with no CT evidence of pulmonary embolism #4. Abdominal pain. CT of the abdomen and pelvis showed no acute findings #5. Hypertension #6. Prostate disorder #7. Occasional marijuana use Plan: We'll start patient on Remdesivir COVID-19 multivitamins Patient has been started on Eliquis We'll continue monitoring for worsening dyspnea and hypoxia We'll obtain inflammatory markers, we'll follow his d-dimer I performed a history & physical examination of the patient and discussed their management with my nurse practitioner, Oanh Hauser. I reviewed the nurse practitioner's note and agree with the documented findings and plan of care. Lung sounds are positive for bilateral crackles throughout the lung jones. The findings and the impression was discussed with the patient. I attest to the documentation by the nurse practitioner. Time with Patient: Greater than 30
[2021-03-22] MEDS: ACETAMINOPHEN TAB 325 MG TAB PO PRN ×2 (01:55→16:15)
[2021-03-22] MEDS: SODIUM CHLORIDE 0.9% 1,000 ML IV SCH (06:21)
[2021-03-22 08:41] LABS: Basophils % (A) 0 %; Eosinophils % (A) 0 %; HCT 43.6 % (39.0-53.0); Lymphocytes # (A) 0.6 k/uL (1.0-4.8); Lymphocytes % (A) 9 %; MCH 30.6 pg (25.0-35.0); MCHC 34.3 g/dL (31.0-37.0); MCV 89.1 fL (80.0-100.0); Mean Platelet Volume 10.2; Monocytes # (A) 0.2 k/uL (0-1.0); Monocytes % (A) 3 %; Neutrophils # (A) 6.1 k/uL (1.3-7.7); Neutrophils % (A) 87 %; Platelet Count 153 k/uL (150-450); RBC 4.89 m/uL (4.30-5.90); RDW 13.4 % (11.5-15.5)
[2021-03-22 09:00] LABS: African American GFR (CKD) >90 (>60 ml/min/1.73 sqM); Anion Gap 8 mmol/L; Blood Urea Nitrogen 13 mg/dL (9-20); Carbon Dioxide 24 mmol/L (22-30); Chloride 103 mmol/L (98-107); Glucose 126 mg/dL (74-99); Non-African American GFR(CKD) >90 (>60 ml/min/1.73 sqM); Sodium 135 mmol/L (137-145)
[2021-03-22] MEDS: PANTOPRAZOLE 40 MG/10 ML VIAL IVP SCH (09:14)
[2021-03-22] MEDS: METOPROLOL SUCCINATE (ER) 25 MG TAB.ER.24H PO SCH (09:15)
[2021-03-22] MEDS: ZINC SULFATE 220 MG CAP PO SCH (09:15)
[2021-03-22] MEDS: APIXABAN 5 MG TAB PO SCH ×2 (09:15→20:31)
[2021-03-22] MEDS: ASCORBIC ACID 500 MG TAB PO SCH ×2 (09:15→20:31)
[2021-03-22] MEDS: MULTIVITAMINS, THERA 1 EACH TAB PO SCH (09:15)
[2021-03-22] MEDS: CHOLECALCIFEROL 25 MCG (1000 IU) TABLET PO SCH (09:15)
[2021-03-22] MEDS: MAG HYDROX/AL HYDROX/SIMETH 30 ML CUP PO PRN ×2 (09:15→16:27)
[2021-03-22] MEDS: amLODIPine 5 MG TAB PO SCH (09:15)
[2021-03-22 09:35] LABS: Potassium 3.6 mmol/L (3.5-5.1)
[2021-03-22] MEDS: HYDROmorphone 1 MG/ML 1 ML SYRINGE IVP PRN (10:45)
[2021-03-22] MEDS ORDERED: DILTIAZEM DRIP BOLUS FROM BAG 1 MG SOLN IV ONE (11:26)
[2021-03-22] MEDS ORDERED: DILTIAZEM 125 MG in SODIUM CHLORIDE 0.9% 100 ML IV SCH (11:30)
[2021-03-22] MEDS ORDERED: ONDANSETRON 4 MG/2 ML VIAL IVP PRN (11:56)
--- NOTE | 2021-03-22 12:13 | P.PN ---
Subjective Progress Note Date: 03/22/21 Principal diagnosis: A. fib RVR, COVID-19 infection 55-year-old white male patient who presented to the emergency department on 03/20/2021 with complaints of worsening shortness of breath over several days. Patient was diagnosed with COVID-19 on March 18. he did not receive his COVID-19 vaccination. He has developed left-sided chest pain. He does have a history of hypertension, prostate disorder, occasional marijuana use. Patient was found to be in A. fib with RVR in the emergency department with a rate of 127 BPM. Chest x-ray showed patchy infiltrates through the bilateral lung peripheries and findings were suggestive of atypical pneumonia. D-dimer was 1.58, CT angiogram of the chest has been completed showing no evidence of PE, and bilateral moderate patchy multifocal pneumonia. he was also complaining of abdominal pain with distention and abdominal CT showed sigmoid diverticulosis, no acute abnormality within the abdomen and pelvis. Patient was started on empiric antibiotics in the emergency department, he was given IV hydration, he was started on Toprol-XL, he was seen by cardiology in consultation. And started on Eliquis for anticoagulation. He seen on selective care unit, he still continues to be febrile with a temp of 101.7F, heart rate is better controlled, however he still slightly tachycardic with a rate of 96-[address] angiogram of the chest showed bilateral moderate patchy multifocal pneumonia. The patient is seen today 03/22/2021 in follow-up on the selective care unit. He is currently resting comfortably in bed. Awake and alert in no acute distress. He is maintaining O2 saturations in the 90s on room air. She is complaining of abdominal discomfort. Abdomen is soft. He is receiving 0.9 normal saline at 50 MLS per hour. He continues with basilar crackles. White count 7.00. Lymphocytes 0.6. Sodium is 135. Potassium is 3.6. Glucose 126. LDH 1167. C-reactive 0. Troponin 0.1. TSH 10. He remains on Remdesivir day #2, Eliquis, Decadron, vitamin supplements. He is currently on a Cardizem drip at 5 mg per hour. Objective - Vital Signs Vital signs: Vital Signs Temp 98.3 F 03/22/21 09:20 Pulse 67 03/22/21 09:20 Resp 18 03/22/21 09:20 BP 147/80 03/22/21 09:20 Pulse Ox 94 L 03/22/21 09:20 Intake & Output 03/21/21 03/22/21 03/22/21 18:59 06:59 18:59 Intake Total 868 50 Balance 868 50 Weight 90 kg 102.5 kg Intake: IV 150 0.9% NaCl with KCl 20 Meq 150 /l 1,000 ml @ 50 mls/hr IV .Q20H [facility] Rx#: [id number] Oral 718 50 Other: Voiding Method Urinal Urinal # Voids 1 2 # Bowel Movements 0 - Exam GENERAL EXAM: Alert, pleasant 55-year-old gentleman, on room air, fairly comfortable in no apparent distress. HEAD: Normocephalic. EYES: Normal reaction of pupils, equal size. NOSE: Clear with pink turbinates. THROAT: No erythema or exudates. NECK: No masses, no JVD. CHEST: No chest wall deformity. LUNGS: Equal air entry with crackles in the posterior bases. CVS: S1 and S2 normal with no audible murmur, regular rhythm. ABDOMEN: Abdominal discomfort but no hepatosplenomegaly, normal bowel sounds, no guarding or rigidity. SPINE: No scoliosis or deformity SKIN: No rashes CENTRAL NERVOUS SYSTEM: No focal deficits, tone is normal in all 4 extremities. EXTREMITIES: There is no peripheral edema. No clubbing, no cyanosis. Peripheral pulses are intact. - Labs CBC & Chem 7: 03/22/21 08:26 03/22/21 08:26 Labs: Abnormal Lab Results - Last 24 Hours (Table) 03/21/21 03/22/21 03/22/21 Range/Units 11:20 08:26 08:26 Lymphocytes # 0.6 L (1.0-4.8) k/uL Sodium 135 L (137-145) mmol/L Glucose 126 H (74-99) mg/dL Calcium 8.0 L (8.4-10.2) mg/dL Procalcitonin 0.17 H (0.02-0.09) ng/mL Assessment and Plan Assessment: 1 Acute COVID-19 related pneumonia, patient was diagnosed on 03/18/2021, patient will be started on Remdesivir on 03/21/2021. He is a nonvaccinated adult 2 A. fib with RVR on presentation, currently better control, patient was started on Cardizem drip, beta chante and Eliquis 3 Elevated d-dimer with no CT evidence of pulmonary embolism [address] of the abdomen and pelvis showed no acute findings 5 Hypertension 6 Prostate disorder 7 Occasional marijuana use Plan: The patient was seen and evaluated Stable and on room air Remains on a Cardizem drip, beta blockers Anticoagulated with Eliquis Continued on Decadron, vitamin supplements Day #2 of Remdesivir Follow-up chest x-ray and labs in the a.m. We will continue to follow I, the cosigning physician, performed a history & physical examination of the patient. Lungs sounds with crackles in the posterior bases. Maintaining good O2 saturations in the 90s on room air. I discussed the assessment and plan of care with my nurse practitioner, Natasha Anderson. I attest to the above note as dictated by her.
[2021-03-22] MEDS: DEXAMETHASONE SOD PHOSPHATE 10 MG/ML 1 ML VIAL IVP SCH (12:20)
[2021-03-22] MEDS ORDERED: METOPROLOL SUCCINATE (ER) 25 MG TAB.ER.24H PO STA (13:16)
--- NOTE | 2021-03-22 13:29 | P.PN ---
Subjective Progress Note Date: 03/22/21 CHIEF COMPLAINT: afib with RVR HISTORY OF PRESENT ILLNESS: This is a 55 year old male with a past medical history significant for hypertension. 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 We have been asked to see the patient in consultation for atrial fibrillation with RVR. The patient presented to the ER with a chief complaint of shortness of breath. He was found to be positive for Covid. The patient did not receive the Covid vaccination. The patient was also found to be in atrial fibrillation with RVR. The patient does not have a history of atrial f ibrillation. Patient is currently maintaining sinus mechanism. He was started on IV heparin. Blood pressure 132/86. He is febrile this morning with a temperature of 100.8F. He is on room air with oxygen saturations greater than 92%. DIAGNOSTICS: EKG reveals A. fib with RVR Chest xray atypical pneumonia Chest CTA: No evidence of pulmonary embolism. Bilateral moderate patchy multifocal pneumonia. Laboratory data: WBC 6.2. Hemoglobin 14.8. Platelet count 119. D-dimer 1.58. Sodium 137. Potassium 5.3. BUN 12. Creatinine 0.79. Lactic acid 2.0. Troponin 0.012. ProBNP 172. Current home cardiac medications include Norvasc 5 mg daily 03/22/2021 Patient remains in the cardiac stepdown unit. Nursing reports that patient has been vomiting today and is unable to keep down his medications. Telemetry reveals atrial fibrillation with mild RVR. Echocardiogram completed revealing ejection fraction 60-65% and trace to mild mitral regurgitation. No complaints of chest pain or pressure. PHYSICAL EXAM: Thorough physical exam not completed secondary to limited evaluation/examination due to Covid19 ASSESSMENT: Shortness of breath Covid 19 pneumonia New-onset paroxysmal atrial fibrillation Hypertension PLAN: Continue Eliquis and metoprolol Begin Cardizem drip and bolus Continue telemetry monitoring Further recommendations pending patient course Nurse practitioner note has been reviewed by physician. Signing provider agrees with the documented findings, assessment, and plan of care. Objective - Vital Signs Vital signs: Vital Signs Temp 98.6 F 03/22/21 11:30 Pulse 104 H 03/22/21 13:09 Resp 16 03/22/21 13:09 BP 131/73 03/22/21 11:30 Pulse Ox 95 03/22/21 11:30 Intake & Output 1203/22/21 03/22/21 18:59 06:59 18:59 Intake Total 868 50 Balance 868 50 Weight 90 kg 102.5 kg Intake: IV 150 0.9% NaCl with KCl 20 Meq 150 /l 1,000 ml @ 50 mls/hr IV .Q20H [facility] Rx#: [id number] Oral 718 50 Other: Voiding Method Urinal Urinal # Voids 1 2 # Bowel Movements 0 - Labs CBC & Chem 7: 03/22/21 08:26 03/22/21 08:26 Labs: Abnormal Lab Results - Last 24 Hours (Table) 03/21/21 03/22/21 03/22/21 Range/Units 11:20 08:26 08:26 Lymphocytes # 0.6 L (1.0-4.8) k/uL Sodium 135 L (137-145) mmol/L Glucose 126 H (74-99) mg/dL Calcium 8.0 L (8.4-10.2) mg/dL Procalcitonin 0.17 H (0.02-0.09) ng/mL
--- NOTE | 2021-03-22 14:32 | P.GSCN ---
<Triny Shearer - Last Filed: 03/22/21 14:14> History of Present Illness Consult date: 03/22/21 History of present illness: CHIEF COMPLAINT: Abdominal pain HISTORY OF PRESENT ILLNESS: This is a 55-year-old male who presented to the hospital with shortness of breath for 10 days prior to his admission and was diagnosed with COVID-19 on March 18. Patient also had new onset of atrial fibrillation with ventricular response. He's been evaluated by cardiology and he is on Eliquis for anticoagulation. He is receiving treatment for COVID-19 pneumonia. Patient also has had complaints of abdominal pain. He reports that he has been having abdominal pain about 4 days prior to his admission. This morning he had severe abdominal pain and required Dilaudid. He reports the Dilaudid did help with the pain. He did report an episode of vomiting this morning which was mostly mucus. He reports decreased appetite. She complains of diffuse pain. He denies any diarrhea. He does report feeling more bloated than usual. He does have a history of alternating between diarrhea and constipation home. However, he reports that he has been having normal stools. He is having flatus. Patient has been febrile. His last fever was 101 last night. He is mildly tachycardic. He denies any past abdominal surgical history. Surgical service consulted for abdominal pain. PAST MEDICAL HISTORY: See list. PAST SURGICAL HISTORY: See list. MEDICATIONS: See list. ALLERGIES: See list. SOCIAL HISTORY: No illicit drug use. REVIEW OF SYSTEMS: CONSTITUTIONAL: Denies fever or chills. HEENT: Denies blurred vision, vision changes, or eye pain. Denies hemoptysis CARDIOVASCULAR: Denies chest pain or pressure. RESPIRATORY: No shortness of breath. GASTROINTESTINAL: See HPI for pertinent findings HEMATOLOGIC: Denies bleeding disorders. GENITOURINARY: Denies any blood in urine or increased urinary frequency. SKIN: Denies pruitis. Denies rash. PHYSICAL EXAM: VITAL SIGNS: Reviewed GENERAL: Well-developed in no acute distress. HEENT: No sclera icterus. Extraocular movements grossly intact. Moist buccal mucosa. Head is atraumatic, normocephalic. No nasal drainage. ABDOMEN: Soft. Mildly distended. Diffuse tenderness NEUROLOGIC: Alert and oriented. Cranial nerves II through XII grossly intact. LABORATORY DATA: WBC 7.0 Hgb 15 platelets 153 D-dimer 1.58 Sodium 135 potassium 3.6 BUN 12 creatinine 0.82 glucose 126 Lactic acid 2.0 AST 63 ALT 46 total bilirubin 0.7 Lactate dehydrogenase 1167 COVID-19 detected IMAGING: Computed tomography scan abdomen and pelvis without contrast demonstrates normal appendix. Normal gallbladder Sigmoid diverticulosis. No acute abnormality within the abdomen and pelvis. There is extensive lower lobe patchy pulmonary infiltrates consistent with multifocal pneumonia which is a change compared to old exam. Severe multilevel lumbar spinal stenosis. Chest CTA negative for PE Echo shows an EF of 60-65% ASSESSMENT: 1. Abdominal pain with an episode of vomiting 2. COVID-19 pneumonia 3. Atrial fibrillation anticoagulated with Eliquis PLAN: -Further recommendations forthcoming per surgeon -Medicine service has ordered an abdominal ultrasound and we will review results -Continue supportive care -Continue antiemetics as needed Thank you for this consultation Physician Rn Wellness note has been reviewed by physician. Signing provider agrees with the documented findings, assessment, and plan of care. Past Medical History Past Medical History: Hypertension, Prostate Disorder Additional Past Medical History / Comment(s): headaches History of Any Multi-Drug Resistant Organisms: None Reported Past Surgical History: Orthopedic Surgery Additional Past Surgical History / Comment(s): ACL repair rt knee Past Anesthesia/Blood Transfusion Reactions: No Reported Reaction Past Psychological History: No Psychological Hx Reported Smoking Status: Never smoker Past Alcohol Use History: Occasional Past Drug Use History: Marijuana - Past Family History Mother Family Medical History: Cancer Medications and Allergies Home Medications Medication Instructions Recorded Confirmed Type Essential-1 Multivitamin 1 tab PO DAILY 03/20/21 03/20/21 History Glucosamine-Chondroitin 8330-6282 1 tab PO DAILY 03/20/21 03/20/21 History Mg amLODIPine [Norvasc] 5 mg PO DAILY 03/20/21 03/20/21 History Apixaban [Eliquis] 5 mg PO BID #60 tab 03/21/21 Rx Allergies Allergy/AdvReac Type Severity Reaction Status Date / Time No Known Allergies Allergy Verified 03/20/21 15:43 Surgical - Exam Vital Signs Pulse Resp BP Pulse Ox 104 H 16 157/88 98 03/20/21 13:03 03/20/21 13:03 03/20/21 13:03 03/20/21 13:03 Results - Labs 03/22/21 08:26 03/22/21 08:26 Abnormal Lab Results - Last 24 Hours (Table) 03/21/21 03/22/21 03/22/21 Range/Units 11:20 08:26 08:26 Lymphocytes # 0.6 L (1.0-4.8) k/uL Sodium 135 L (137-145) mmol/L Glucose 126 H (74-99) mg/dL Calcium 8.0 L (8.4-10.2) mg/dL Procalcitonin 0.17 H (0.02-0.09) ng/mL Diabetes panel 03/22/21 Range/Units 08:26 Sodium 135 L (137-145) mmol/L Potassium 3.6 (3.5-5.1) mmol/L Chloride 103 (98-107) mmol/L Carbon Dioxide 24 (22-30) mmol/L BUN 13 (9-20) mg/dL Creatinine 0.82 (0.66-1.25) mg/dL Glucose 126 H (74-99) mg/dL Calcium 8.0 L (8.4-10.2) mg/dL Calcium panel 03/22/21 Range/Units 08:26 Calcium 8.0 L (8.4-10.2) mg/dL Pituitary panel 03/22/21 Range/Units 08:26 Sodium 135 L (137-145) mmol/L Potassium 3.6 (3.5-5.1) mmol/L Chloride 103 (98-107) mmol/L Carbon Dioxide 24 (22-30) mmol/L BUN 13 (9-20) mg/dL Creatinine 0.82 (0.66-1.25) mg/dL Glucose 126 H (74-99) mg/dL Calcium 8.0 L (8.4-10.2) mg/dL Adrenal panel 03/22/21 Range/Units 08:26 Sodium 135 L (137-145) mmol/L Potassium 3.6 (3.5-5.1) mmol/L Chloride 103 (98-107) mmol/L Carbon Dioxide 24 (22-30) mmol/L BUN 13 (9-20) mg/dL Creatinine 0.82 (0.66-1.25) mg/dL Glucose 126 H (74-99) mg/dL Calcium 8.0 L (8.4-10.2) mg/dL <Cortez Burns - Last Filed: 03/22/21 16:59> History of Present Illness History of present illness: As above. Patient says his symptoms of nausea, early satiety, and vague diffuse abdominal discomfort have been waxing and waning over the last several days. Patient with fevers and intermittent tachycardia. He appears comfortable sitting up in bed. He just finished much of his lunch which was solid foods. His abdominal exam reveals mild diffuse tenderness. CAT scan was reviewed and no definite abnormalities noted. Continue diet as ordered for now. Continue antibiotics and antiacid therapy. Continue supportive care for covid. We'll follow with you. Surgical - Exam Vital Signs Pulse Resp BP Pulse Ox 104 H 16 157/88 98 03/20/21 13:03 03/20/21 13:03 03/20/21 13:03 03/20/21 13:03 Results - Labs 03/22/21 08:26 03/22/21 08:26 Abnormal Lab Results - Last 24 Hours (Table) 03/21/21 03/22/21 03/22/21 Range/Units 11:20 08:26 08:26 Lymphocytes # 0.6 L (1.0-4.8) k/uL Sodium 135 L (137-145) mmol/L Glucose 126 H (74-99) mg/dL Calcium 8.0 L (8.4-10.2) mg/dL Procalcitonin 0.17 H (0.02-0.09) ng/mL Diabetes panel 03/22/21 Range/Units 08:26 Sodium 135 L (137-145) mmol/L Potassium 3.6 (3.5-5.1) mmol/L Chloride 103 (98-107) mmol/L Carbon Dioxide 24 (22-30) mmol/L BUN 13 (9-20) mg/dL Creatinine 0.82 (0.66-1.25) mg/dL Glucose 126 H (74-99) mg/dL Calcium 8.0 L (8.4-10.2) mg/dL Calcium panel 03/22/21 Range/Units 08:26 Calcium 8.0 L (8.4-10.2) mg/dL Pituitary panel 03/22/21 Range/Units 08:26 Sodium 135 L (137-145) mmol/L Potassium 3.6 (3.5-5.1) mmol/L Chloride 103 (98-107) mmol/L Carbon Dioxide 24 (22-30) mmol/L BUN 13 (9-20) mg/dL Creatinine 0.82 (0.66-1.25) mg/dL Glucose 126 H (74-99) mg/dL Calcium 8.0 L (8.4-10.2) mg/dL Adrenal panel 03/22/21 Range/Units 08:26 Sodium 135 L (137-145) mmol/L Potassium 3.6 (3.5-5.1) mmol/L Chloride 103 (98-107) mmol/L Carbon Dioxide 24 (22-30) mmol/L BUN 13 (9-20) mg/dL Creatinine 0.82 (0.66-1.25) mg/dL Glucose 126 H (74-99) mg/dL Calcium 8.0 L (8.4-10.2) mg/dL
--- NOTE | 2021-03-22 15:17 | P.PN ---
Subjective Progress Note Date: 03/22/21 This is a 55-year-old gentleman with past medical history of hypertension, prostate disorder, headaches occasional marijuana use presented to the ER with worsening dyspnea over the last 10 days, reporting that he was diagnosed with Covid-19 on March 18. Patient also complained of nonradiating constant left- sided chest pain. Denies nausea vomiting or diarrhea, complains of abdominal pain.abdomen/pelvis CT reported no acute abnormality, sigmoid diverticulosis ,moderately severe spinal stenosis at multiple levels in the lumbar spine from L2 to S1 .D-dimer elevated at 1.58, chest CTA reported no evidence of pulmonary embolism. There is bilateral moderate patchy multifocal pneumonia. Chest x-ray reported atypical pneumonia. Received Rocephin in the ER .Potassium is 3.3, troponin negative 1, EKG reported atrial fibrillation with a ventricular rate in 120s. ER reports runs of ventricular tachycardia. Heparin drip initiated. T-max 102.7. Lactic acid 2. 03/22/2021 continues on Covid cocktail, Remdesivir, gentle IV fluid hydration ,maintaining O2 sats in the 90s on room air. Maintained on Cardizem and heparin drips, currently sinus rhythm T-max 101.7. Labs pending. Echo reporting no rmal LV function, EF 60-65%. Nauseated with mucousy emesis 1. Abdominal pain lessening, passing flatus. Afebrile. Objective - Vital Signs Vital signs: Vital Signs Temp 98.6 F 03/22/21 11:30 Pulse 104 H 03/22/21 13:09 Resp 16 03/22/21 13:09 BP 131/73 03/22/21 11:30 Pulse Ox 95 03/22/21 11:30 Intake & Output 03/21/21 03/22/21 03/22/21 18:59 06:59 18:59 Intake Total 868 50 Balance 868 50 Weight 90 kg 102.5 kg Intake: IV 150 0.9% NaCl with KCl 20 Meq 150 /l 1,000 ml @ 50 mls/hr IV .Q20H [facility] Rx#: [id number] Oral 718 50 Other: Voiding Method Urinal Urinal # Voids 1 2 # Bowel Movements 0 - Exam PHYSICAL EXAM: VITAL SIGNS: As above GENERAL: Sitting up at side of bed, no acute distress HEENT: Conjunctivae normal. eyes normal. NECK: No JVD. No thyroid enlargement. No LNs CARDIOVASCULAR: S1, S2 regular.No murmur RESPIRATION: Breath sounds diminished in the bases. No rhonchi, positive bibasilar crackles ABDOMEN: Soft, mildly distended, diffuse tenderness, No guarding. no masses pal pable.Bowel sounds heard. LEGS: No edema. no swelling PSYCHIATRY: Alert and oriented X3, mood and affect normal. NERVOUS SYSTEM: Cranial N 2-12 grossly normal. Moves all 4 limbs. No focal deficits. Strength and sensation grossly intact.. Skin: Warm and dry, no rash - Labs CBC & Chem 7: 03/22/21 08:26 03/22/21 08:26 Labs: Abnormal Lab Results - Last 24 Hours (Table) 03/21/21 03/22/21 03/22/21 Range/Units 11:20 08:26 08:26 Lymphocytes # 0.6 L (1.0-4.8) k/uL Sodium 135 L (137-145) mmol/L Glucose 126 H (74-99) mg/dL Calcium 8.0 L (8.4-10.2) mg/dL Procalcitonin 0.17 H (0.02-0.09) ng/mL Assessment and Plan Assessment: Acute Covid 19 pneumonia, unvaccinated. Initially tested positive on March 18. Abdominal pain with nausea, vomiting, possibly related to the above. Paroxysmal atrial fibrillation with RVR, new onset Runs of nonsustained V. tach in ER Sigmoid diverticulosis Several multilevel lumbar spinal stenosis Obesity, BMI 30.2 Hypokalemia Hyponatremia, mild Plan: Continue current medication regime ,monitoring and symptomatic treatment. Covid cocktail. Blood cultures pending. Antiarrhythmics as per Cardiology. Labs pending. Abdominal ultrasound/general surgery consulted. Prognosis guarded given multiple complex medical issues. The impression and plan of care has been dictated as directed. : I performed a history and examination of this patient, discussed the same with the dictator. I agree with the dictator's note ,documented as a scribe. Any additional findings or plans will be noted.
[2021-03-22] MEDS: metroNIDAZOLE-NS PMX 500 MG in SALINE 1 100ML.BAG IVPB SCH ×2 (16:08→23:34)
[2021-03-22] MEDS: PANTOPRAZOLE 40 MG TABLET PO SCH (16:27)
[2021-03-22] MEDS: REMDESIVIR 100 MG in SODIUM CHLORIDE 0.9% 250 ML IVPB SCH (17:11)
--- NOTE | 2021-03-22 18:46 | US ---
EXAMINATION TYPE: US abdomen complete DATE OF EXAM: 03/22/2021 COMPARISON: NONE CLINICAL HISTORY: abd pain. Covid pt with normal CT but still having abd pain described as bloating. EXAM MEASUREMENTS: Liver Length: 18.9 cm Gallbladder Wall: 0.2 cm CBD: 0.7 cm Spleen: 15.7 cm Right Kidney: 12.2 x 4.4 x 5.1 cm Left Kidney: 14.2 x 4.8 x 5.9 cm Pancreas: wnl Liver: difficult to penetrate and overlying bowel gas limits views, upper size of normal Gallbladder: wnl Evidence for sonographic Candelaria's sign: no CBD: wnl Spleen: enlarged Right Kidney: wnl Left Kidney: large in size Upper IVC: wnl Abd Aorta: wnl IMPRESSION: Large kidneys. No renal mass or obstruction. No gallstones or dilated ducts. No focal everett er defect.
[2021-03-23] MEDS: SODIUM CHLORIDE 0.9% 1,000 ML IV SCH ×2 (03:52→21:41)
[2021-03-23] MEDS: HYDROmorphone 1 MG/ML 1 ML SYRINGE IVP PRN (03:53)
[2021-03-23] MEDS: PANTOPRAZOLE 40 MG TABLET PO SCH ×2 (06:36→16:58)
[2021-03-23] MEDS: APIXABAN 5 MG TAB PO SCH ×2 (08:11→21:33)
[2021-03-23] MEDS: metroNIDAZOLE-NS PMX 500 MG in SALINE 1 100ML.BAG IVPB SCH (08:11)
[2021-03-23] MEDS: ZINC SULFATE 220 MG CAP PO SCH (08:11)
[2021-03-23] MEDS: amLODIPine 5 MG TAB PO SCH (08:11)
[2021-03-23] MEDS: DEXAMETHASONE SOD PHOSPHATE 10 MG/ML 1 ML VIAL IVP SCH (08:11)
[2021-03-23] MEDS: ASCORBIC ACID 500 MG TAB PO SCH ×2 (08:11→21:32)
[2021-03-23] MEDS: MULTIVITAMINS, THERA 1 EACH TAB PO SCH (08:11)
[2021-03-23] MEDS: METOPROLOL SUCCINATE (ER) 25 MG TAB.ER.24H PO SCH (08:11)
[2021-03-23] MEDS: CHOLECALCIFEROL 25 MCG (1000 IU) TABLET PO SCH (08:11)
--- NOTE | 2021-03-23 08:23 | P.PN ---
Subjective Progress Note Date: 03/23/21 Principal diagnosis: Paroxysmal atrial fibrillation The patient is a 55-year-old gentleman who was admitted to the hospital was COVID-19 a pneumonia and we consulted to see the patient because of atrial fibrillation. The patient has been maintaining normal sinus mechanism. Hemodynamically he is a slightly hypertensive and tachycardic. I'm going to increase the dose of beta chante. The echo showed normal left ventricular systolic function Objective - Vital Signs Vital signs: Vital Signs Temp 98.1 F 03/23/21 04:00 Pulse 92 03/23/21 04:00 Resp 20 03/23/21 04:00 BP 157/94 03/23/21 04:00 Pulse Ox 95 03/23/21 04:00 Intake & Output 03/22/21 03/23/21 03/23/21 18:59 06:59 18:59 Intake Total 630 Output Total 1 Balance 629 Weight 106 kg Intake: Intake, IV Titration 100 Amount metroNIDAZOLE-NS PMX 500 100 mg In Saline 1 100ml.bag @ 100 mls/hr IVPB Q8HR [facility] Rx#:[id number] Oral 530 Output: Urine 1 Other: Voiding Method Urinal # Voids 2 - Labs CBC & Chem 7: 03/22/21 08:26 03/22/21 08:26 Labs: Abnormal Lab Results - Last 24 Hours (Table) 03/22/21 03/22/21 Range/Units 08:26 08:26 Lymphocytes # 0.6 L (1.0-4.8) k/uL Sodium 135 L (137-145) mmol/L Glucose 126 H (74-99) mg/dL Calcium 8.0 L (8.4-10.2) mg/dL Microbiology - Last 24 Hours (Table) 03/21/21 19:15 Blood Culture - Preliminary Blood No Growth after 24 hours 03/21/21 15:45 Blood Culture - Preliminary Blood No Growth after 24 hours Assessment and Plan Assessment: Assessment #1 COVID-19 pneumonia #2 paroxysmal atrial fibrillation #3 shortness of breath secondary to the above Plan #1 continue oral anticoagulation #2 increase the dose of beta chante #3 the echo showed normal function #4 follow-up with the patient
[2021-03-23 08:55] LABS: ALT 63 U/L (4-49); AST 72 U/L (17-59); African American GFR (CKD) >90 (>60 ml/min/1.73 sqM); Albumin 2.9 g/dL (3.5-5.0); Alkaline Phosphatase 54 U/L (38-126); Amylase 46 U/L (30-110); Anion Gap 9 mmol/L; Blood Urea Nitrogen 17 mg/dL (9-20); Calcium 8.5 mg/dL (8.4-10.2); Carbon Dioxide 23 mmol/L (22-30); Chloride 106 mmol/L (98-107); Glucose 121 mg/dL (74-99); Lipase 46 U/L (23-300); Non-African American GFR(CKD) >90 (>60 ml/min/1.73 sqM); Potassium 3.7 mmol/L (3.5-5.1); Sodium 138 mmol/L (137-145); Total Bilirubin 0.5 mg/dL (0.2-1.3); Total Protein 5.9 g/dL (6.3-8.2)
[2021-03-23] MEDS ORDERED: METOPROLOL SUCCINATE (ER) 50 MG TAB.ER.24H PO SCH (09:00)
--- NOTE | 2021-03-23 11:32 | XR ---
EXAMINATION TYPE: XR chest 1V DATE OF EXAM: 03/23/2021 COMPARISON: Chest x-ray 03/20/2021 HISTORY: Abnormal chest x-ray, fluid overload TECHNIQUE: Single frontal view of the chest is obtained. FINDINGS: Patchy bilateral airspace disease is again seen and may have worsened slightly in interval . No evident pneumothorax or pleural effusion. Cardiac mediastinal silhouette is unchanged. IMPRESSION: Correlate for pneumonia, edema
--- NOTE | 2021-03-23 12:13 | P.PN ---
Subjective Progress Note Date: 03/23/21 Principal diagnosis: Abdominal pain Patient is doing better at this time. Abdominal pain is minimal today. He had an abdominal ultrasound that was also relatively normal. Tolerating regular diet. Objective - Vital Signs Vital signs: Vital Signs Temp 98.1 F 03/23/21 12:02 Pulse 91 03/23/21 12:02 Resp 20 03/23/21 12:02 BP 145/80 03/23/21 12:02 Pulse Ox 92 L 03/23/21 12:02 Intake & Output 03/22/21 03/23/21 03/23/21 18:59 06:59 18:59 Intake Total 630 580 Output Total 1 Balance 629 580 Weight 106 kg Intake: Intake, IV Titration 100 340 Amount Sodium Chloride 0.9% 1, 240 000 ml @ 50 mls/hr IV . Q20H [facility] Rx#:[id number] metroNIDAZOLE-NS PMX 500 100 100 mg In Saline 1 100ml.bag @ 100 mls/hr IVPB Q8HR [facility] Rx#:[id number] Oral 530 240 Output: Urine 1 Other: Voiding Method Urinal Toilet Urinal # Voids 2 - Exam Abdomen: Soft, mild distention, no significant tenderness - Labs CBC & Chem 7: 03/22/21 08:26 03/23/21 08:08 Labs: Abnormal Lab Results - Last 24 Hours (Table) 03/23/21 Range/Units 08:08 Glucose 121 H (74-99) mg/dL AST 72 H (17-59) U/L ALT 63 H (4-49) U/L Total Protein 5.9 L (6.3-8.2) g/dL Albumin 2.9 L (3.5-5.0) g/dL Microbiology - Last 24 Hours (Table) 03/21/21 19:15 Blood Culture - Preliminary Blood No Growth after 24 hours 03/21/21 15:45 Blood Culture - Preliminary Blood No Growth after 24 hours Assessment and Plan (1) Abdominal pain Narrative/Plan: Patient doing better today from a abdominal pain standpoint. Continue regular diet. Will follow. Current Visit: Yes Status: Acute Code(s): R10.9 - UNSPECIFIED ABDOMINAL PAIN SNOMED Code(s): 54252570
--- NOTE | 2021-03-23 13:12 | P.PN ---
Subjective Progress Note Date: 03/23/21 Principal diagnosis: A. fib RVR, COVID-19 infection 55-year-old white male patient who presented to the emergency department on 03/20/2021 with complaints of worsening shortness of breath over several days. Patient was diagnosed with COVID-19 on March 18. he did not receive his COVID-19 vaccination. He has developed left-sided chest pain. He does have a history of hypertension, prostate disorder, occasional marijuana use. Patient was found to be in A. fib with RVR in the emergency department with a rate of 127 BPM. Chest x-ray showed patchy infiltrates through the bilateral lung peripheries and findings were suggestive of atypical pneumonia. D-dimer was 1.58, CT angiogram of the chest has been completed showing no evidence of PE, and bilateral moderate patchy multifocal pneumonia. he was also complaining of abdominal pain with distention and abdominal CT showed sigmoid diverticulosis, no acute abnormality within the abdomen and pelvis. Patient was started on empiric antibiotics in the emergency department, he was given IV hydration, he was started on Toprol-XL, he was seen by cardiology in consultation. And started on Eliquis for anticoagulation. He seen on selective care unit, he still continues to be febrile with a temp of 101.7F, heart rate is better controlled, however he still slightly tachycardic with a rate of 96-[address] angiogram of the chest showed bilateral moderate patchy multifocal pneumonia. The patient is seen today 03/22/2021 in follow-up on the selective care unit. He is currently resting comfortably in bed. Awake and alert in no acute distress. He is maintaining O2 saturations in the 90s on room air. She is complaining of abdominal discomfort. Abdomen is soft. He is receiving 0.9 normal saline at 50 MLS per hour. He continues with basilar crackles. White count 7.00. Lymphocytes 0.6. Sodium is 135. Potassium is 3.6. Glucose 126. LDH 1167. C-reactive 0. Troponin 0.1. TSH 10. He remains on Remdesivir day #2, Eliquis, Decadron, vitamin supplements. He is currently on a Cardizem drip at 5 mg per hour. The patient is seen today 03/23/2021 in follow-up on the selective care unit. He is currently sitting up in bed. Awake and alert in no acute distress. He is currently on 2 L nasal cannula with O2 saturations in the low 90s. He was 83% on room air. This is day #3 of Remdesivir. Chest x-ray continues to show bilateral patchy infiltrates and slightly worsened. Sodium 138. Potassium 3.7. Creatinine 0.73. Glucose 121. AST 72. ALT 63. He remains on Decadron, Eliquis, vitamin supplements. He is off the Cardizem drip and on oral anti- arrhythmics. Objective - Vital Signs Vital signs: Vital Signs Temp 98.1 F 03/23/21 12:02 Pulse 91 03/23/21 12:02 Resp 20 03/23/21 12:02 BP 145/80 03/23/21 12:02 Pulse Ox 92 L 03/23/21 12:02 Intake & Output 03/22/21 03/23/21 03/23/21 18:59 06:59 18:59 Intake Total 630 580 Output Total 1 Balance 629 580 Weight 106 kg Intake: Intake, IV Titration 100 340 Amount Sodium Chloride 0.9% 1, 240 000 ml @ 50 mls/hr IV . Q20H [facility] Rx#:[id number] metroNIDAZOLE-NS PMX 500 100 100 mg In Saline 1 100ml.bag @ 100 mls/hr IVPB Q8HR [facility] Rx#:[id number] Oral 530 240 Output: Urine 1 Other: Voiding Method Urinal Toilet Urinal # Voids 2 - Exam GENERAL EXAM: Alert, pleasant 55-year-old gentleman, on 2 L/m per nasal cannula, fairly comfortable in no apparent distress. HEAD: Normocephalic. EYES: Normal reaction of pupils, equal size. NOSE: Clear with pink turbinates. THROAT: No erythema or exudates. NECK: No masses, no JVD. CHEST: No chest wall deformity. LUNGS: Equal air entry with crackles in the posterior bases. CVS: S1 and S2 normal with no audible murmur, regular rhythm. ABDOMEN: Abdominal discomfort but no hepatosplenomegaly, normal bowel sounds, no guarding or rigidity. SPINE: No scoliosis or deformity SKIN: No rashes CENTRAL NERVOUS SYSTEM: No focal deficits, tone is normal in all 4 extremities. EXTREMITIES: There is no peripheral edema. No clubbing, no cyanosis. Peripheral pulses are intact. - Labs CBC & Chem 7: 03/22/21 08:26 03/23/21 08:08 Labs: Abnormal Lab Results - Last 24 Hours (Table) 03/23/21 Range/Units 08:08 Glucose 121 H (74-99) mg/dL AST 72 H (17-59) U/L ALT 63 H (4-49) U/L Total Protein 5.9 L (6.3-8.2) g/dL Albumin 2.9 L (3.5-5.0) g/dL Microbiology - Last 24 Hours (Table) 03/21/21 19:15 Blood Culture - Preliminary Blood No Growth after 24 hours 03/21/21 15:45 Blood Culture - Preliminary Blood No Growth after 24 hours Assessment and Plan Assessment: 1 Acute COVID-19 related pneumonia, patient was diagnosed on 03/18/2021, started on Remdesivir on 03/21/2021. He is a nonvaccinated adult 2 A. fib with RVR on presentation, currently better control, off Cardizem drip, anticoagulated with Eliquis 3 Elevated d-dimer with no CT evidence of pulmonary embolism [address] of the abdomen and pelvis showed no acute findings 5 Hypertension 6 Prostate disorder 7 Occasional marijuana use Plan: The patient was seen and evaluated Stable on 2 L nasal cannula Anticoagulated with Eliquis Continued on Decadron, vitamin supplements Day #3 of Remdesivir We will continue to follow I, the cosigning physician, performed a history & physical examination of the patient. Lungs sounds with crackles in the posterior bases. Maintaining good O2 saturations in the 90s on 2 L nasal cannula. I discussed the assessment and plan of care with my nurse practitioner, Natasha Anderson. I attest to the above note as dictated by her.
--- NOTE | 2021-03-23 13:32 | P.PN ---
Subjective From records: This is a 55-year-old gentleman with past medical history of hypertension, prostate disorder, headaches occasional marijuana use presented to the ER with worsening dyspnea over the last 10 days, reporting that he was diagnosed with Co vid-19 on March 18. Patient also complained of nonradiating constant left- sided chest pain. Denies nausea vomiting or diarrhea, complains of abdominal pain.abdomen/pelvis CT reported no acute abnormality, sigmoid diverticulosis ,moderately severe spinal stenosis at multiple levels in the lumbar spine from L2 to S1 .D-dimer elevated at 1.58, chest CTA reported no evidence of pulmonary embolism. There is bilateral moderate patchy multifocal pneumonia. Chest x-ray reported atypical pneumonia. Received Rocephin in the ER .Potassium is 3.3, troponin negative 1, EKG reported atrial fibrillation with a ventricular rate in 120s. ER reports runs of ventricular tachycardia. Heparin drip initiated. T-max 102.7. Lactic acid 2. Subjective: 03/23/2021 This is a pleasant 55 years old male with multiple medical problems presents with signs and symptoms of paroxysmal atrial fibrillation's with RVR, patient was started on beta chante metoprolol and his dose was increased today 25 follow-up to 50 mg daily. His heart rate is better controlled at 91. Also he is on Eliquis 5 mg twice a day which is a home medication. Patient also with bilateral Covid pneumonia and mild hypoxia on 2 L oxygen saturating 92% and his currently covered with multiple vitamins, dexamethasone as well as remdesivir per pulmonary team recommendation who are following the patient closely Chest x-ray today showing possible pneumonia versus edema, IV fluids stopped His abdominal pain is improving and he is eating 75-40% of his diet. No need for surgical intervention by surgery team. No fever or leukocytosis therefore the suspicion for infection is low. Therefore we will discontinue antiflatulent and we'll monitor the patient for any symptom worsening or fever. Liver enzymes mildly elevated secondary to Covid infection. LDH is 1167 and C- reactive protein 6.0 which are elevated. Objective - Vital Signs Vital signs: Vital Signs Temp 98.2 F 03/23/21 08:31 Pulse 96 03/23/21 08:31 Resp 18 03/23/21 08:31 BP 137/81 03/23/21 08:31 Pulse Ox 83 L 03/23/21 08:31 Intake & Output 03/22/21 03/23/21 03/23/21 18:59 06:59 18:59 Intake Total 630 580 Output Total 1 Balance 629 580 Weight 106 kg Intake: Intake, IV Titration 100 340 Amount Sodium Chloride 0.9% 1, 240 000 ml @ 50 mls/hr IV . Q20H ZAID Rx#:[id number] metroNIDAZOLE-NS PMX 500 100 100 mg In Saline 1 100ml.bag @ 100 mls/hr IVPB Q8HR ZAID Rx#:[id number] Oral 530 240 Output: Urine 1 Other: Voiding Method Urinal Toilet Urinal # Voids 2 - Exam -GENERAL: The patient is alert and oriented x3, not in any acute distress. Obese HEENT: Pupils are round and equally reacting to light. EOMI. No scleral icterus. No conjunctival pallor. Normocephalic, atraumatic. No pharyngeal erythema. No thyromegaly. CARDIOVASCULAR: S1 and S2 present. No murmurs, rubs, or gallops. -PULMONARY: Chest is clear to auscultation, no wheezing or crackles. Bilateral crepitation ABDOMEN: Soft, nontender, nondistended, normoactive bowel sounds. No palpable organomegaly. MUSCULOSKELETAL: No joint swelling or deformity. EXTREMITIES: No cyanosis, clubbing, or pedal edema. NEUROLOGICAL: Gross neurological examination did not reveal any focal deficits. SKIN: No rashes. no petechiae. - Labs CBC & Chem 7: 03/22/21 08:26 03/23/21 08:08 Labs: Abnormal Lab Results - Last 24 Hours (Table) 03/23/21 Range/Units 08:08 Glucose 121 H (74-99) mg/dL AST 72 H (17-59) U/L ALT 63 H (4-49) U/L Total Protein 5.9 L (6.3-8.2) g/dL Albumin 2.9 L (3.5-5.0) g/dL Microbiology - Last 24 Hours (Table) 03/21/21 19:15 Blood Culture - Preliminary Blood No Growth after 24 hours 03/21/21 15:45 Blood Culture - Preliminary Blood No Growth after 24 hours Assessment and Plan Assessment: Bilateral Covid pneumonia Acute hypoxic respiratory failure Increased inflammatory markers Paroxysmal atrial fibrillation with RVR on admission Abdominal pain, nonspecific could be also secondary to Covid infection, improving Mild hepatitis secondary to Covid Plan: This is a pleasant 55 years old male who presents with covid pneumonia and A. fib Continue with dexamethasone Continue with vitamin C, vitamin D and zinc Pulmonary consult continue with metoprolol, Eliquis and cardiology consult Surgery team on the case, no need for surgical intervention Labs and medication were reviewed.. Continue same treatment. Continue with symptomatic treatment. Resume home medication. Monitor lytes and vitals. DVT and GI prophylaxis. Further recommendationsas per clinical course of the patient DVT prophylaxis: Eliquis GI Prophylaxis: Ppi Prognosis is guarded
[2021-03-23] MEDS: REMDESIVIR 100 MG in SODIUM CHLORIDE 0.9% 250 ML IVPB SCH (15:45)
[2021-03-24] MEDS: PANTOPRAZOLE 40 MG TABLET PO SCH ×2 (06:23→16:29)
[2021-03-24] MEDS: ZINC SULFATE 220 MG CAP PO SCH (08:33)
[2021-03-24] MEDS: APIXABAN 5 MG TAB PO SCH ×2 (08:33→21:23)
[2021-03-24] MEDS: CHOLECALCIFEROL 25 MCG (1000 IU) TABLET PO SCH (08:33)
[2021-03-24] MEDS: ASCORBIC ACID 500 MG TAB PO SCH ×2 (08:33→21:23)
[2021-03-24] MEDS: MULTIVITAMINS, THERA 1 EACH TAB PO SCH (08:33)
[2021-03-24] MEDS: amLODIPine 5 MG TAB PO SCH (08:33)
[2021-03-24] MEDS: DEXAMETHASONE SOD PHOSPHATE 10 MG/ML 1 ML VIAL IVP SCH (08:34)
--- NOTE | 2021-03-24 08:34 | P.PN ---
Subjective Progress Note Date: 03/24/21 Principal diagnosis: Paroxysmal atrial fibrillation The patient is a 55-year-old gentleman who was admitted to the hospital was COVID-19 a pneumonia and we consulted to see the patient because of atrial fibrillation which was a new diagnosis to the patient. He underwent an echo cardiogram and that revealed normal left ventricular systolic function with evidence of mild aortic stenosis. The patient continues to be in and out atrial fibrillation. The pressure is elevated. I'm going to increase the dose of metoprolol. No indication of chest pain or chest discomfort. The patient is on oral anticoagulation. Objective - Vital Signs Vital signs: Vital Signs Temp 98.3 F 03/24/21 04:00 Pulse 98 03/24/21 04:00 Resp 18 03/24/21 04:00 BP 151/92 03/24/21 04:00 Pulse Ox 95 03/24/21 04:00 Intake & Output 03/23/21 03/24/21 03/24/21 18:59 06:59 18:59 Intake Total 580 Output Total 425 Balance 155 Weight 96 kg Intake: Intake, IV Titration 340 Amount Sodium Chloride 0.9% 1, 240 000 ml @ 50 mls/hr IV . Q20H ZAID Rx#:[id number] metroNIDAZOLE-NS PMX 500 100 mg In Saline 1 100ml.bag @ 100 mls/hr IVPB Q8HR ZAID Rx#:[id number] Oral 240 Output: Urine 425 Other: Voiding Method Toilet Urinal # Voids 1 2 # Bowel Movements 2 - Constitutional General appearance: Present: no acute distress - Labs CBC & Chem 7: 03/22/21 08:26 03/23/21 08:08 Labs: Abnormal Lab Results - Last 24 Hours (Table) 03/23/21 Range/Units 08:08 Glucose 121 H (74-99) mg/dL AST 72 H (17-59) U/L ALT 63 H (4-49) U/L Total Protein 5.9 L (6.3-8.2) g/dL Albumin 2.9 L (3.5-5.0) g/dL Microbiology - Last 24 Hours (Table) 03/21/21 19:15 Blood Culture - Preliminary Blood No Growth after 48 hours 03/21/21 15:45 Blood Culture - Preliminary Blood No Growth after 48 hours Assessment and Plan Assessment: Assessment #1 COVID-19 pneumonia #2 paroxysmal atrial fibrillation #3 shortness of breath secondary to the above Plan #1 continue oral anticoagulation #2 increase the dose of beta chante #3 the echo showed normal function #4 follow-up with the patient
[2021-03-24] MEDS: METOPROLOL SUCCINATE (ER) 50 MG TAB.ER.24H PO SCH ×2 (08:39→21:23)
--- NOTE | 2021-03-24 10:28 | P.PN ---
Subjective Progress Note Date: 03/24/21 Principal diagnosis: Abdominal pain Patient is doing better at this time. Abdominal pain is now absent. Shortness of breath seems somewhat better as well. He is tolerating his diet. Objective - Vital Signs Vital signs: Vital Signs Temp 97.9 F 03/24/21 08:33 Pulse 94 03/24/21 08:33 Resp 20 03/24/21 08:33 BP 158/91 03/24/21 08:33 Pulse Ox 91 L 03/24/21 08:33 Intake & Output 03/23/21 03/24/21 03/24/21 18:59 06:59 18:59 Intake Total 580 128 Output Total 425 Balance 155 128 Weight 96 kg Intake: IV 10 Invasive Line 1 10 Intake, IV Titration 340 Amount Sodium Chloride 0.9% 1, 240 000 ml @ 50 mls/hr IV . Q20H ZAID Rx#:[id number] metroNIDAZOLE-NS PMX 500 100 mg In Saline 1 100ml.bag @ 100 mls/hr IVPB Q8HR ZAID Rx#:[id number] Oral 240 118 Output: Urine 425 Other: Voiding Method Toilet Toilet Urinal Urinal # Voids 1 2 # Bowel Movements 2 - Exam Abdomen: Soft, nontender, nondistended - Labs CBC & Chem 7: 03/22/21 08:26 03/23/21 08:08 Labs: Microbiology - Last 24 Hours (Table) 03/21/21 19:15 Blood Culture - Preliminary Blood No Growth after 48 hours 03/21/21 15:45 Blood Culture - Preliminary Blood No Growth after 48 hours Assessment and Plan (1) Abdominal pain Narrative/Plan: Patient doing better from abdominal pain point of view. Continue diet as tolerated. We will sign off. Please call if needed. Current Visit: Yes Status: Acute Code(s): R10.9 - UNSPECIFIED ABDOMINAL PAIN SNOMED Code(s): 48470026
--- NOTE | 2021-03-24 12:54 | P.PN ---
Subjective From records: This is a 55-year-old gentleman with past medical history of hypertension, prostate disorder, headaches occasional marijuana use presented to the ER with worsening dyspnea over the last 10 days, reporting that he was diagnosed with Co vid-19 on March 18. Patient also complained of nonradiating constant left- sided chest pain. Denies nausea vomiting or diarrhea, complains of abdominal pain.abdomen/pelvis CT reported no acute abnormality, sigmoid diverticulosis ,moderately severe spinal stenosis at multiple levels in the lumbar spine from L2 to S1 .D-dimer elevated at 1.58, chest CTA reported no evidence of pulmonary embolism. There is bilateral moderate patchy multifocal pneumonia. Chest x-ray reported atypical pneumonia. Received Rocephin in the ER .Potassium is 3.3, troponin negative 1, EKG reported atrial fibrillation with a ventricular rate in 120s. ER reports runs of ventricular tachycardia. Heparin drip initiated. T-max 102.7. Lactic acid 2. Subjective: 03/23/2021 This is a pleasant 55 years old male with multiple medical problems presents with signs and symptoms of paroxysmal atrial fibrillation's with RVR, patient was started on beta chante metoprolol and his dose was increased today 25 follow-up to 50 mg daily. His heart rate is better controlled at 91. Also he is on Eliquis 5 mg twice a day which is a home medication. Patient also with bilateral Covid pneumonia and mild hypoxia on 2 L oxygen saturating 92% and his currently covered with multiple vitamins, dexamethasone as well as remdesivir per pulmonary team recommendation who are following the patient closely Chest x-ray today showing possible pneumonia versus edema, IV fluids stopped His abdominal pain is improving and he is eating 75-40% of his diet. No need for surgical intervention by surgery team. No fever or leukocytosis therefore the suspicion for infection is low. Therefore we will discontinue antiflatulent and we'll monitor the patient for any symptom worsening or fever. Liver enzymes mildly elevated secondary to Covid infection. LDH is 1167 and C- reactive protein 6.0 which are elevated. 03/24/2021 Patient still feels dyspnea with exertion but no chest pain and no abdominal pain. He is hemodynamically stable. He is saturating 92-95% on room air today. He has no fever for more than 48 hours. Heart rate is 83 and he is mildly tachypneic 18-20 breaths per minute. His abdominal pain resolved and surgery team signed off the case He remains on dexamethasone, multiple vitamins, home dose of Eliquis. Normal saline was discontinued yesterday as well as Cardizem drip, currently kept on metoprolol 50 mg with heart rate is controlled. remdesivir is ordered for him and he took first dose however he refused yesterday and today does, risks and benefits are explained for him patient is still refusing the medication although he verbalized understanding. Objective - Vital Signs Vital signs: Vital Signs Temp 98.3 F 03/24/21 04:00 Pulse 98 03/24/21 04:00 Resp 18 03/24/21 04:00 BP 151/92 03/24/21 04:00 Pulse Ox 95 03/24/21 04:00 Intake & Output 03/23/21 03/24/21 03/24/21 18:59 06:59 18:59 Intake Total 580 Output Total 425 Balance 155 Weight 96 kg Intake: Intake, IV Titration 340 Amount Sodium Chloride 0.9% 1, 240 000 ml @ 50 mls/hr IV . Q20H ZAID Rx#:[id number] metroNIDAZOLE-NS PMX 500 100 mg In Saline 1 100ml.bag @ 100 mls/hr IVPB Q8HR ZAID Rx#:[id number] Oral 240 Output: Urine 425 Other: Voiding Method Toilet Urinal # Voids 1 2 # Bowel Movements 2 - Exam -GENERAL: The patient is alert and oriented x3, not in any acute distress. Obes e HEENT: Pupils are round and equally reacting to light. EOMI. No scleral icterus. No conjunctival pallor. Normocephalic, atraumatic. No pharyngeal erythema. No thyromegaly. CARDIOVASCULAR: S1 and S2 present. No murmurs, rubs, or gallops. -PULMONARY: Chest is clear to auscultation, no wheezing or crackles. Bilateral crepitation ABDOMEN: Soft, nontender, nondistended, normoactive bowel sounds. No palpable organomegaly. MUSCULOSKELETAL: No joint swelling or deformity. EXTREMITIES: No cyanosis, clubbing, or pedal edema. NEUROLOGICAL: Gross neurological examination did not reveal any focal deficits. SKIN: No rashes. no petechiae. - Labs CBC & Chem 7: 03/22/21 08:26 03/23/21 08:08 Labs: Abnormal Lab Results - Last 24 Hours (Table) 12/11/21 Range/Units 08:08 Glucose 121 H (74-99) mg/dL AST 72 H (17-59) U/L ALT 63 H (4-49) U/L Total Protein 5.9 L (6.3-8.2) g/dL Albumin 2.9 L (3.5-5.0) g/dL Microbiology - Last 24 Hours (Table) 03/21/21 19:15 Blood Culture - Preliminary Blood No Growth after 48 hours 03/21/21 15:45 Blood Culture - Preliminary Blood No Growth after 48 hours Assessment and Plan Assessment: Bilateral Covid pneumonia Acute hypoxic respiratory failure Increased inflammatory markers Noncompliance, patient refusing remdesivir Paroxysmal atrial fibrillation with RVR on admission Abdominal pain, nonspecific could be also secondary to Covid infection, improving Mild hepatitis secondary to Covid Plan: This is a pleasant 55 years old male who presents with covid pneumonia and A. fib Continue with dexamethasone Continue with vitamin C, vitamin D and zinc Pulmonary consult continue with metoprolol, Eliquis and cardiology consult Surgery team signed off the case, no need for surgical intervention Labs and medication were reviewed.. Continue same treatment. Continue with symptomatic treatment. Resume home medication. Monitor lytes and vitals. DVT and GI prophylaxis. Further recommendationsas per clinical course of the patient DVT prophylaxis: Eliquis GI Prophylaxis: Ppi Prognosis is guarded Dr. Rajput will resume the care of the patient tomorrow
--- NOTE | 2021-03-24 15:46 | P.PN ---
Subjective Progress Note Date: 03/24/21 55-year-old white male patient who presented to the emergency department on 03/20/2021 with complaints of worsening shortness of breath over several days. Patient was diagnosed with COVID-19 on March 18. he did not receive his COVID-19 vaccination. He has developed left-sided chest pain. He does have a history of hypertension, prostate disorder, occasional marijuana use. Patient was found to be in A. fib with RVR in the emergency department with a rate of 127 BPM. Chest x-ray showed patchy infiltrates through the bilateral lung peripheries and findings were suggestive of atypical pneumonia. D-dimer was 1.58, CT angiogram of the chest has been completed showing no evidence of PE, and bilateral moderate patchy multifocal pneumonia. he was also complaining of abdominal pain with distention and abdominal CT showed sigmoid diverticulosis, no acute abnormality within the abdomen and pelvis. Patient was started on empiric antibiotics in the emergency department, he was given IV hydration, he was started on Toprol-XL, he was seen by cardiology in consultation. And started on Eliquis for anticoagulation. He seen on selective care unit, he still continues to be febrile with a temp of 101.7F, heart rate is better controlled, however he still slightly tachycardic with a rate of 96-[address] angiogram of the chest showed bilateral moderate patchy multifocal pneumonia. The patient is seen today 03/22/2021 in follow-up on the selective care unit. He is currently resting comfortably in bed. Awake and alert in no acute distress. He is maintaining O2 saturations in the 90s on room air. She is complaining of abdominal discomfort. Abdomen is soft. He is receiving 0.9 normal saline at 50 MLS per hour. He continues with basilar crackles. White count 7.00. Lymphocytes 0.6. Sodium is 135. Potassium is 3.6. Glucose 126. LDH 1167. C-reactive 0. Troponin 0.1. TSH 10. He remains on Remdesivir day #2, Eliquis, Decadron, vitamin supplements. He is currently on a Cardizem drip at 5 mg per hour. The patient is seen today 03/23/2021 in follow-up on the selective care unit. He is currently sitting up in bed. Awake and alert in no acute distress. He is currently on 2 L nasal cannula with O2 saturations in the low 90s. He was 83% on room air. This is day #3 of Remdesivir. Chest x-ray continues to show bilateral patchy infiltrates and slightly worsened. Sodium 138. Potassium 3.7. Creatinine 0.73. Glucose 121. AST 72. ALT 63. He remains on Decadron, Eliquis, vitamin supplements. He is off the Cardizem drip and on oral anti- arrhythmics. On 03/24/2021 patient seen in follow-up on selective care unit, he is currently on room air, pulse ox is 95%, breathing comfortably, still has a mild cough, and becomes short of breath with exertion, but no acute distress. Looks very comfortable, his been ambulating to the bathroom, tolerates activity well, he has refused Remdesivir and only took one dose initially. He is on Eliquis and Toprol-XL 50 mg for new onset A. fib with RVR, no complaints of chest discomfort, lung sounds reveal minimal crackles at bilateral bases, overall patient has been stable, improving. Electrolytes and renal profile are unremarkable, inflammatory markers are pending on today's labs. His last chest x-ray from yesterday showed patchy bilateral airspace disease with possibility of slight worsening. Clinically patient has remained stable. Objective - Vital Signs Vital signs: Vital Signs Temp 98.5 F 03/24/21 11:20 Pulse 83 03/24/21 11:20 Resp 18 03/24/21 11:20 BP 146/89 03/24/21 11:20 Pulse Ox 95 03/24/21 11:20 Intake & Output 03/23/21 03/24/21 03/24/21 18:59 06:59 18:59 Intake Total 580 128 Output Total 425 450 Balance 155 -322 Weight 96 kg Intake: IV 10 Invasive Line 1 10 Intake, IV Titration 340 Amount Sodium Chloride 0.9% 1, 240 000 ml @ 50 mls/hr IV . Q20H ZAID Rx#:[id number] metroNIDAZOLE-NS PMX 500 100 mg In Saline 1 100ml.bag @ 100 mls/hr IVPB Q8HR ZAID Rx#:[id number] Oral 240 118 Output: Urine 425 450 Other: Voiding Method Toilet Toilet Urinal Urinal # Voids 1 2 1 # Bowel Movements 2 - Exam GENERAL EXAM: Alert, very pleasant, 55-year-old white male on room air with a pulse ox of 95% comfortable in no apparent distress. HEAD: Normocephalic/atraumatic. EYES: Normal reaction of pupils, equal size. Conjunctiva pink, sclera white. NOSE: Clear with pink turbinates. THROAT: No erythema or exudates. NECK: No masses, no JVD, no thyroid enlargement, no adenopathy. CHEST: No chest wall deformity. Symmetrical expansion. LUNGS: Equal air entry with crackles at bilateral bases CVS: Regular rate and rhythm, normal S1 and S2, no gallops, no murmurs, no rubs ABDOMEN: Soft, nontender. No hepatosplenomegaly, normal bowel sounds, no guarding or rigidity. EXTREMITIES: No clubbing, no edema, no cyanosis, 2+ pulses and upper and lower extremities. MUSCULOSKELETAL: Muscle strength and tone normal. SPINE: No scoliosis or deformity SKIN: No rashes CENTRAL NERVOUS SYSTEM: Alert and oriented -3. No focal deficits, tone is normal in all 4 extremities. PSYCHIATRIC: Alert and oriented -3. Appropriate affect. Intact judgment and insight. - Labs CBC & Chem 7: 03/22/21 08:26 03/23/21 08:08 Labs: Microbiology - Last 24 Hours (Table) 03/21/21 19:15 Blood Culture - Preliminary Blood No Growth after 48 hours 03/21/21 15:45 Blood Culture - Preliminary Blood No Growth after 48 hours Assessment and Plan Plan: Assessment: #1. Acute COVID-19 related pneumonia, patient was diagnosed on 03/18/2021, patient is a non-vaccinated adult, patient was given a dose of Remdesivir, however patient refused all subsequent doses related to a concern for a risk for acute kidney injury. Renal function has remained stable throughout patient's stay and within normal limits. #2. A. fib with RVR on presentation, currently better control, patient was started on Toprol-XL, and Eliquis #3. Elevated d-dimer with no CT evidence of pulmonary embolism #4. Abdominal pain. CT of the abdomen and pelvis showed no acute findings #5. Hypertension #6. Prostate disorder #7. Occasional marijuana use Plan: Patient refused Remdesivir all except for the initial dose Clinical patient is improving anyway He is on room air, tolerating ambulation No acute issues overnight Heart Rate control and anticoagulation per cardiology Continue Decadron and COVID-19 multivitamins Consider for discharge home once cleared by cardiology today or tomorrow I performed a history & physical examination of the patient and discussed their management with my nurse practitioner, Oanh Hauser. I reviewed the nurse practitioner's note and agree with the documented findings and plan of care. Lung sounds are positive for bilateral crackles throughout the lung jones. The findings and the impression was discussed with the patient. I attest to the documentation by the nurse practitioner. Time with Patient: Less than 30
[2021-03-25] MEDS: PANTOPRAZOLE 40 MG TABLET PO SCH (06:19)
[2021-03-25] MEDS: CHOLECALCIFEROL 25 MCG (1000 IU) TABLET PO SCH (09:35)
[2021-03-25] MEDS: amLODIPine 5 MG TAB PO SCH (09:35)
[2021-03-25] MEDS: APIXABAN 5 MG TAB PO SCH (09:35)
[2021-03-25] MEDS: MULTIVITAMINS, THERA 1 EACH TAB PO SCH (09:35)
[2021-03-25] MEDS: ZINC SULFATE 220 MG CAP PO SCH (09:35)
[2021-03-25] MEDS: ASCORBIC ACID 500 MG TAB PO SCH (09:35)
[2021-03-25] MEDS: METOPROLOL SUCCINATE (ER) 50 MG TAB.ER.24H PO SCH (09:35)
[2021-03-25] MEDS: DEXAMETHASONE SOD PHOSPHATE 10 MG/ML 1 ML VIAL IVP SCH (09:36)
[2021-03-25 10:20] VITALS: RESP 16
[2021-03-25] MEDS ORDERED: dexAMETHasone 2 MG TAB PO SCH (10:30)
[2021-03-25 12:33] VITALS: BP 136/89; PULSE 88; TEMP 98.1
--- NOTE | 2021-03-25 14:25 | P.PN ---
Subjective HISTORY OF PRESENT ILLNESS: This is a 55 year old male with a past medical history significant for hypertension. Patient does not follow with a indian nanny. We have been asked to see the patient in consultation for atrial fibrillation with RVR. The patient presented to the ER with a chief complaint of shortness of breath. He was found to be positive for Covid. The patient did not receive the Covid vaccination. The patient was also found to be in atrial fibrillation with RVR. The patient does not have a history of atrial fibril lation. Patient is currently in and out of atrial fibrillation. Currently in atrial fibrillation with controlled ventricular rates. He is on Eliquis 5mg BID, metoprolol succinate 50mg BID. Echocardiogram completed revealing ejection fraction 60-65% and trace to mild mitral regurgitation. No complaints of chest pain or pressure. GENERAL: Well-appearing, well-nourished and in no acute distress. NECK: Supple without JVD or thyromegaly. LUNGS: Breath sounds clear to auscultation bilaterally. Respiration equal and unlabored. HEART: Irregular rate and rhythm without murmurs S1 and S2 heard. EXTREMITIES: Normal range of motion, no edema. ASSESSMENT: Shortness of breath Covid 19 pneumonia New-onset paroxysmal atrial fibrillation [id number] score 1 Hypertension PLAN: Continue Eliquis and metoprolol From a cardiology perspective, patient is stable and can be discharged from our perspective Recommend follow up with Dr. Torres in the office Nurse practitioner note has been reviewed by physician. Signing provider agrees with the documented findings, assessment, and plan of care. Objective - Vital Signs Vital signs: Vital Signs Temp 98.1 F 03/25/21 11:55 Pulse 88 03/25/21 11:55 Resp 16 03/25/21 11:55 BP 136/89 03/25/21 11:55 Pulse Ox 92 L 03/25/21 11:55 Intake & Output 03/24/21 03/25/21 03/25/21 18:59 06:59 18:59 Intake Total 488 10 240 Output Total 750 Balance -262 10 240 Weight 92.5 kg Intake: IV 10 10 0.9 10 Invasive Line 1 10 Oral 478 240 Output: Urine 750 Other: Voiding Method Toilet Toilet Toilet Urinal # Voids 1 1 2 - Labs CBC & Chem 7: 03/22/21 08:26 03/23/21 08:08 Labs: Microbiology - Last 24 Hours (Table) 03/21/21 19:15 Blood Culture - Preliminary Blood No Growth after 72 hours 03/21/21 15:45 Blood Culture - Preliminary Blood No Growth after 72 hours
--- NOTE | 2021-03-25 16:46 | PN ---
PROGRESS NOTE INTERVAL HISTORY: This is a 55-year-old male who was admitted with a diagnosis of acute COVID-19 related pneumonia. The patient was not vaccinated. The patient was seen today. His primary care physician is Dr. Deniz Rajput. The patient is possibly being considered for discharge today. The patient is currently not on any supplemental oxygen. IV fluids have been discontinued. In addition to the above, he has a history of atrial fibrillation with RVR, a CT angiogram which was done and revealed no evidence of pulmonary embolism, abdominal pain, which is resolved, with a negative CT scan of the abdomen, hypertension, and occasional marijuana use. Currently, the patient is resting pretty comfortably. He states that he is feeling well. His breathing is much improved. He denies any chest pain or chest discomfort. PHYSICAL EXAMINATION: His heart rate is 94 beats per minute. Blood pressure is 137/82, respiratory rate 18, temperature is 98.5. Saturations as mentioned above. Again, he is on room air. General: No acute distress, oriented x3. No signs or symptoms of respiratory distress, audible wheezing, use of accessory muscles. HEENT: Examination is grossly unremarkable. NECK is supple. Full range of motion. No adenopathy. Neck veins are flat. CARDIOVASCULAR: Examination reveals regular rhythm and rate. S1, S2 normal. No S3, S4, or murmur. HEART rate on examination was 79 beats per minute. LUNGS reveal some mild bibasilar crackles. No wheezes or rhonchi. Breath sounds equal. ABDOMEN soft. Bowel sounds are heard. EXTREMITIES are intact. No cyanosis, clubbing, or edema. SKIN: Without rash. NEUROLOGIC: Examination is brief but nonfocal. LABORATORY DATA: No current laboratory data to report. X-RAY: Chest x-ray done on March 23 shows some patchy bibasilar patchy bilateral infiltrates. MEDICATIONS: Are reviewed. ASSESSMENT: 1. Acute junior virus associated pneumonia, in an un-vaccinated adult, much improved. 2. Atrial fibrillation with RVR, now with much better controlled. 3. CT angiogram, negative for PE. 4. Abdominal pain, resolved, with negative CT scan of the abdomen and pelvis. 5. Benign essential hypertension. 6. Benign prostatic hypertrophy. 7. Occasional marijuana use. PLAN: The patient apparently received a first dose of Remdesivir and then refused afterwards. Currently on room air. He is tolerating ambulation. His other medications are reviewed. His cardiac rhythm is stable. The patient is being considered for possible discharge. We will leave that up to the primary. MMVIOLA / ALEXN: [id number] / MTDMoe
[2021-03-26] MEDS ORDERED: dexAMETHasone 2 MG TAB PO SCH (09:00)
== END 2021-03-25 15:18 | disposition home or self-care (01) | DRG 177 ==
LOC: EC 12:42 → 3SCARD 15:24
PROVIDERS: ADMIT Family Medicine; ATTEND Family Medicine
PROC: XW033E5 Introduction of Remdesivir Anti-infective into Peripheral Vein, Percutaneous Approach, New Technology Group 5 (ICD-10-PCS; principal; 2021-03-21)
PROC: 3E0333Z Introduction of Anti-inflammatory into Peripheral Vein, Percutaneous Approach (ICD-10-PCS; 2021-03-25)
DX: U07.1 COVID-19 (principal); J12.82 Pneumonia due to coronavirus disease 2019; J96.01 Acute respiratory failure with hypoxia; E87.1 Hypo-osmolality and hyponatremia; I47.2 Ventricular tachycardia; E66.9 Obesity, unspecified; Z68.30 Body mass index [BMI] 30.0-30.9, adult; E87.6 Hypokalemia; I10 Essential (primary) hypertension; I48.0 Paroxysmal atrial fibrillation; K57.30 Diverticulosis of large intestine without perforation or abscess without bleeding; K75.9 Inflammatory liver disease, unspecified; M48.061 Spinal stenosis, lumbar region without neurogenic claudication; N40.0 Benign prostatic hyperplasia without lower urinary tract symptoms; Z79.01 Long term (current) use of anticoagulants; Z79.899 Other long term (current) drug therapy; Z91.19 Patient's noncompliance with other medical treatment and regimen
CPT/HCPCS: 36415; 71045; 71046; 71275; 74176; 76700; 80048; 80053; 82150; 83605; 83615; 83690; 83735; 83880; 84145; 84443; 84484; 85025; 85379; 85610; 85730; 86140; 87040; 87635; 93005; 93306; 96361; 96374; 99285

== ENCOUNTER → 2021-05-06 | Outpatient (CLI) | payer BC ==
[2021-05-06 19:59] LABS: HCT 43.5 % (39.6-50.0); HGB 14.1 g/dL (13.0-17.0); MCH 29.1 pg (27.0-32.0); MCHC 32.4 g/dL (32.0-37.0); MCV 89.9 fL (80.0-97.0); Mean Platelet Volume 12.1 fL (9.5-12.2); Platelet Count 264 X 10*3/uL (140-440); RBC 4.84 X 10*6/uL (4.40-5.60); RDW 14.6 % (11.5-14.5); WBC 12.66 X 10*3/uL (4.50-10.00)
[2021-05-06 21:40] LABS: African American GFR (CKD) 103.4 (60.0-200.0); Anion Gap 14.5 mmol/L (10.00-18.00); Blood Urea Nitrogen 13.5 mg/dL (9.0-27.0); Carbon Dioxide 19.7 mmol/L (20.0-27.5); Non-African American GFR(CKD) 89.2 (60.0-200.0)
== END | disposition home or self-care (01) ==
LOC: LABPAT 12:26
PROVIDERS: ATTEND Internal Medicine Interventional Cardiology
DX: Z01.812 Encounter for preprocedural laboratory examination (principal); I35.0 Nonrheumatic aortic (valve) stenosis
CPT/HCPCS: 80051; 82565; 84520; 85027

== ENCOUNTER 2021-05-14 10:53 | Day surgery (SDC) | payer BC ==
[2021-05-08 16:05] VITALS: BMI 41.0
[~2021-05-14 10:53] MED LIST: ALPRAZolam 0.25 MG TAB PO PRN; ALPRAZolam 0.5 MG TAB PO PRN; ASPIRIN 325 MG TAB PO ONE; HEPARIN SODIUM,PORCINE 10,000 UNIT in SODIUM CHLORIDE 0.9% 1,000 ML IRRIGATION PRN; HEPARIN SODIUM,PORCINE 2,500 UNIT in SODIUM CHLORIDE 0.9% 250 ML IRRIGATION PRN; NITROGLYCERIN SL TABS 0.4 MG TAB SUBLINGUAL PRN; SODIUM CHLORIDE 0.9% 1,000 ML in EMPTY BAG 1 BAG IV SCH
[2021-05-14 11:41] VITALS: RESP 18; TEMP 99
[2021-05-14] MEDS ORDERED: LIDOCAINE 1% INJ 10MG/ML (20 ML MDV) ONE (12:00)
[2021-05-14] MEDS ORDERED: VERAPAMIL 2.5 MG/ML 2 ML AMP ONE (12:00)
[2021-05-14] MEDS ORDERED: MIDAZOLAM 2 MG/2 ML VIAL IVP ONE (12:42)
[2021-05-14] MEDS ORDERED: LIDOCAINE 1% INJ 10MG/ML (20 ML MDV) SQ ONE (12:45)
[2021-05-14] MEDS: VERAPAMIL SYRINGE (5 MG/10 ML) INTRAARTER ONE ×2 (12:47→12:50)
[2021-05-14] MEDS ORDERED: HEPARIN SODIUM 1,000 UN/ML (10ML VL) ONE (12:47)
[2021-05-14] MEDS ORDERED: HEPARIN SODIUM 1,000 UN/ML (10ML VL) IVP ONE (12:49)
[2021-05-14] MEDS ORDERED: IOPAMIDOL-370 125ML BTL INJ ONE (12:56)
[2021-05-14] MEDS ORDERED: RX INFO: IV CONTRAST WAS GIVEN 1 EACH MISC MISCELLANE PRN (13:05)
--- NOTE | 2021-05-14 13:08 | P.PCN ---
Date of Procedure: 05/14/21 Operative Findings: CARDIAC CATHETERIZATION PERFORMING PHYSICIAN: Lalo Torres MD, RPVI PROCEDURE PERFORMED: 1. Selective right and left coronary angiogram 2. Left heart catheterization INDICATION: Chest discomfort in this 55-year-old gentleman underwent myocardial perfusion imaging stress test and that revealed an anterior ischemia COMPLICATION: None APPROACH: Right radial artery LEVEL OF SEDATION: Moderate with a sedation length of 12 minutes PROCEDURE DESCRIPTION: After obtaining an informed consent, the patient was brought to cardiac prosthetics lab technician. Local anesthesia was performed using lidocaine subcutaneously. The right radial artery was cannulated using Seldinger technique, the guidewire passed easily, following that we advanced a 5-Macanese sheath dilator assembly, the wire and dilator were removed and sheath was flushed. Following that, 2 mg of verapamil along with 5000 unit heparin were given. Selective right and left coronary angiogram using a 6-Macanese JR4 and JL 3.5 catheters. Following that we did left heart catheterization using 6-Macanese pigtail catheter. The procedure was completed there was no complication. SELECTIVE CORONARY ANGIOGRAM: The right coronary artery: Is a large caliber vessel and dominant vessel. Appears to be angiographically normal . This into PDA and PLV branches both appeared to be angiographically normal Left main: Is angiographically normal. Bifurcates into LCx and LAD The left circumflex: Is a large caliber vessel and codominant vessel. Its angiographically normal. Gives rises into an appointment branch which appears to be normal and distally bifurcates into PDA and PLV branches and both appeared to be angiographically normal The left anterior descending artery: Is angiographically normal. Gives rise into a large diagonal branch which seems to be angiographically normal HEMODYNAMICS: The LVEDP was 12 mmHg without significant gradient across aortic valve CONCLUSION: 1. Normal coronary angiogram 2. Normal left-sided filling pressure POSTPROCEDURE MANAGEMENT: Medical treatment and follow-up with the patient
[2021-05-14] MEDS ORDERED: SODIUM CHLORIDE 0.9% 1,000 ML IV SCH (13:15)
[2021-05-14 15:24] VITALS: PULSE 82
[2021-05-14 16:12] VITALS: BP 154/75
== END 2021-05-14 16:25 | disposition home or self-care (01) ==
LOC: CATHCVL 10:53
PROVIDERS: ATTEND Internal Medicine Interventional Cardiology
DX: R07.89 Other chest pain (principal); R94.39 Abnormal result of other cardiovascular function study; I10 Essential (primary) hypertension; I35.0 Nonrheumatic aortic (valve) stenosis; E66.9 Obesity, unspecified; Z68.41 Body mass index [BMI] 40.0-44.9, adult; Z82.49 Family history of ischemic heart disease and other diseases of the circulatory system; I48.91 Unspecified atrial fibrillation; Z79.01 Long term (current) use of anticoagulants; Z79.52 Long term (current) use of systemic steroids; Z79.899 Other long term (current) drug therapy; Z20.822 Contact with and (suspected) exposure to COVID-19
CPT/HCPCS: 93458; 87635; C1894; J2250; J2001; J1644; Q9967

== ENCOUNTER → 2023-06-09 | Outpatient (CLI) | payer OTHER ==
--- NOTE | 2023-06-11 06:01 | MR ---
EXAMINATION TYPE: MR knee LT wo con DATE OF EXAM: 06/09/2023 COMPARISON: Outside left knee x-ray June 02, 2023 HISTORY: Lt knee pain, locking, and swelling for 21 months. Twisting injury. TECHNIQUE: Multiplanar, multisequence images of the knee is performed without IV contrast. FINDINGS: MEDIAL MENISCUS: Increased signal medial meniscus through the body and posterior horn does not defini tively extend to articular surface. LATERAL MENISCUS: Anterior and posterior horns are intact without tear. CRUCIATE LIGAMENTS: The posterior cruciate ligament is intact and unremarkable. Increased signal and partial tearing of the anterior cruciate ligament. There is fanning of fibers present with adjacent c ystic change. COLLATERAL LIGAMENTS: The medial collateral ligament and lateral collateral ligament complex are inta ct and unremarkable. EXTENSOR MECHANISM: Visualized quadriceps and patellar tendons are intact. EFFUSION: Small to tiny suprapatellar joint effusion. POPLITEAL CYST: No popliteal/fernandez cyst. TRICOMPARTMENT SPACES: Mild to moderate tricompartment joint space loss and spurring. CARTILAGE: Tricompartmental articular cartilage is fairly well preserved. BONE MARROW SIGNAL: No focal abnormal marrow signal is appreciated. OTHER: No additional significant abnormality is appreciated. IMPRESSION: 1. Partial tearing of the anterior cruciate ligament. 2. Intrasubstance tear central body and posterior horn medial meniscus. No full-thickness meniscal te ar. 3. [id number] tricompartment degenerative changes as detailed above. 4. Small to tiny size suprapatellar joint effusion.
== END | disposition home or self-care (01) ==
LOC: RADMRIMAIN 10:57
PROVIDERS: ATTEND Orthopaedic Surgery
DX: M17.12 Unilateral primary osteoarthritis, left knee (principal); M25.462 Effusion, left knee; M23.612 Other spontaneous disruption of anterior cruciate ligament of left knee; M23.322 Other meniscus derangements, posterior horn of medial meniscus, left knee; X50.1XXA Overexertion from prolonged static or awkward postures, initial encounter

== ENCOUNTER → 2023-06-30 | Outpatient (CLI) | payer OTHER ==
[2023-06-30 18:08] LABS: Basophils # (A) 0.08 X 10*3/uL (0.00-0.10); Eosinophils # (A) 0.47 X 10*3/uL (0.04-0.35); Eosinophils % (A) 5.8 %; HGB 15.1 g/dL (13.0-17.0); Lymphocytes # (A) 1.81 X 10*3/uL (0.90-5.00); Lymphocytes % (A) 22.4 %; MCH 28.7 pg (27.0-32.0); MCHC 32.8 g/dL (32.0-37.0); MCV 87.3 FL (80.0-97.0); Mean Platelet Volume 11.9 FL (9.5-12.2); Monocytes # (A) 0.74 X 10*3/uL (0.20-1.00); Monocytes % (A) 9.2 %; NRBC Per 100 WBC 0 X 10*3/uL (0.00-0.01); Neutrophils # (A) 4.95 X 10*3/uL (1.80-7.70); Neutrophils % (A) 61.4 %; Platelet Count 221 X 10*3/uL (140-440); RBC 5.27 X 10*6/uL (4.40-5.60); RDW 13.7 % (11.5-14.5); WBC 8.07 X 10*3/uL (4.50-10.00)
[2023-06-30 18:17] LABS: Anion Gap 10.3 mmol/L (4.00-12.00); Carbon Dioxide 24.7 mmol/L (21.6-31.8)
== END | disposition home or self-care (01) ==
LOC: LABPAT 13:32
PROVIDERS: ATTEND Orthopaedic Surgery
DX: Z01.812 Encounter for preprocedural laboratory examination (principal)
CPT/HCPCS: 36415; 80051; 85025

== ENCOUNTER 2023-07-23 10:39 | Day surgery (SDC) | payer OTHER ==
[2023-07-20 10:54] VITALS: BMI 39.5
--- NOTE | 2023-07-22 13:57 | HP ---
HISTORY AND PHYSICAL DATE OF ANTICIPATED SURGERY: 07/23/2023. HISTORY OF PRESENT ILLNESS: Mayo Bullock is a 57-year-old gentleman seen with progressive left knee pain. Options with him were discussed. He elected to proceed with left knee arthroscopy. Consent was obtained. Medical clearance was provided. PAST MEDICAL HISTORY: Atrial fibrillation, hypertension. SURGICAL HISTORY: Noncontributory. DAILY MEDICATIONS: 1. Amlodipine. 2. Eliquis. 3. Hydrochlorothiazide. 4. Metoprolol. ALLERGIES: KARRIE inhibitors. SOCIAL HISTORY: Denies tobacco use. PHYSICAL EVALUATION OF LEFT KNEE: His range of motion is -1/2 to 120 degrees. He has a moderate effusion. Tenderness to medial joint line. Positive medial Aditi's. Ligaments are stable. Hip rotation is without pain. His distal neurovascular exam is intact. IMAGING STUDIES: Radiographs of the left knee revealed moderate osteoarthritic changes. MRI left knee revealed medial meniscal tear, partial anterior cruciate ligament tear. IMPRESSION: 1. Internal derangement left knee with medial meniscal tear. 2. Left knee partial anterior cruciate ligament tear. 3. Hypertension. 4. Atrial fibrillation. PLAN: Left knee arthroscopy with partial medial meniscectomy, debridement, partial ACL tear. MMODL / IJN: [id number] /
[~2023-07-23 10:39] MED LIST changes: -ALPRAZolam 0.25 MG TAB PO PRN; -ALPRAZolam 0.5 MG TAB PO PRN; -ASPIRIN 325 MG TAB PO ONE; +DEXAMETHASONE SOD PHOSPHATE 4 MG/ML 1 ML VIAL IV ONE; -HEPARIN SODIUM,PORCINE 10,000 UNIT in SODIUM CHLORIDE 0.9% 1,000 ML IRRIGATION PRN; -HEPARIN SODIUM,PORCINE 2,500 UNIT in SODIUM CHLORIDE 0.9% 250 ML IRRIGATION PRN; +LIDOCAINE 1% (10MG/ML) FOR IV START INTRADERMA PRN; +MIDAZOLAM 2 MG/2 ML VIAL IV PRN; -NITROGLYCERIN SL TABS 0.4 MG TAB SUBLINGUAL PRN; +ONDANSETRON 4 MG/2 ML VIAL IVP ONE; -SODIUM CHLORIDE 0.9% 1,000 ML in EMPTY BAG 1 BAG IV SCH
[2023-07-23] MEDS: LACTATED RINGERS 1,000 ML IV SCH (11:33)
[2023-07-23] MEDS: ONDANSETRON 4 MG/2 ML VIAL IVP ONE (11:40)
[2023-07-23] MEDS: DEXAMETHASONE SOD PHOSPHATE 4 MG/ML 1 ML VIAL IVP ONE (11:40)
[2023-07-23] MEDS ORDERED: fentaNYL (PF) 50 MCG/ML 2 ML AMP ONE (12:44)
[2023-07-23] MEDS ORDERED: SUCCINYLCHOLINE CHLORIDE 200 MG/10 ML VIAL IV ONE (12:44)
[2023-07-23] MEDS ORDERED: MIDAZOLAM 2 MG/2 ML VIAL ONE (12:44)
[2023-07-23] MEDS ORDERED: PROPOFOL 10 MG/ML 20 ML VIAL IV ONE (12:44)
[2023-07-23] MEDS ORDERED: KETOROLAC 15 MG/ML 1 ML VIAL ONE (12:44)
[2023-07-23] MEDS ORDERED: LIDOCAINE 1% INJ 10MG/ML (20 ML MDV) ONE (12:44)
[2023-07-23] MEDS: BUPIVACAINE (PF) 0.25% 30 ML VIAL INTRAARTIC ONE (12:46)
--- NOTE | 2023-07-23 13:38 | P.OP ---
Date of Procedure: 07/23/23 Preoperative Diagnosis: Internal derangement left knee Postoperative Diagnosis: 1. Tear medial meniscus left knee 2. Grade IV chondromalacia femoral sulcus left knee 3. Reactive synovitis medial, lateral and suprapatellar compartments left knee 4. Partial ACL tear left knee 5. 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 Arthroscopic partial medial meniscectomy left knee 2. Arthroscopic microfracture femoral sulcus left knee 3. Arthroscopic partial synovectomy medial, lateral and suprapatellar compartments left knee 4. Arthroscopic debridement partial ACL tear left knee 5. Arthroscopic chondroplasty femoral sulcus left knee 6. Arthroscopic chondroplasty medial femoral condyle left knee Anesthesia: BEREA, local Surgeon: Maxi Veloz Estimated Blood Loss (ml): 10 Pathology: none sent Condition: stable Disposition: PACU Indications for Procedure: 57-year-old patient seen with progressive left knee pain. After having treatment options, he elected to proceed with arthroscopy. Operative Findings: See description of procedure Description of Procedure: Patient was taken to the operative suite. Patient underwent a general anesthetic by the department of anesthesia. Patient was given preoperative antibiotics. The left lower extremity was placed in a well-padded arthroscopic leg leary. The left leg was prepped and draped in the normal sterile orthopedic fashion. A lateral parapatellar and suprapatellar incision was made. Trochars were inserted. Arthroscopy was initiated. Suprapatellar pouch revealed diffuse thick reactive synovitis. The patellofemoral joint appeared to articulate congruently. There was an area of grade II/III chondromalacia involving the femoral sulcus with some osteochondral flap tears. The scope was guided into the medial gutter. No loose bodies or plica were identified. The scope was then guided into the medial compartment. A medial parapatellar incision was made. Trocar inserted followed by probe. There was a tear involving the posterior horn of the medial meniscus. There were grade II chondromalacia changes of the medial femoral condyle with diffuse osteochondral flap tears present. There was thick reactive synovitis anteriorly. I performed a partial medial meniscectomy getting down to stable meniscal tissue. I performed a chondroplasty of the medial femoral condyle getting down to stable osteochondral tissue. I performed a partial synovectomy decompressing that reactive synovitis anteriorly. The residual meniscus was stable. The residual osteochondral surface was stable. There was good decompression of the synovitis. Scope and probe were then guided into the intercondylar notch. There was partial tearing of the anterior cruciate ligament. I used a motorized shaver and debrided that getting down to stable ligamentous tissue. The residual anterior crucial ligament appeared stable with a reasonable amount of bulk left. The PCL appeared stable.. The scope and probe were then guided into lateral compartment. The lateral meniscus was probed and was found to be stable without tears. There was no chondromalacia present lateral compartment. There was some reactive synovitis anteriorly. I introduced a motorized shaver and performed a partial synovectomy decompressing the thick reactive synovitis. The shaver was now removed. There was good decompression of the synovitis. The scope was in guided back into the suprapatellar compartment. I had used a motorized shaver into the suprapatellar compartment. I performed a partial synovectomy decompressing the reactive synovitis. I now performed a chondroplasty of that femoral sulcus getting down to stable osteochondral tissue. I did notice area of exposed bone along the proximal aspect of that area of chondromalacia measuring just under a centimeter. I introduced a microfracture awl and I performed a microfracture to the area of exposed bone in the femoral sulcus penetrating the bone with resultant bleeding at the microfracture site. The residual osteochondral surface was probed and was found to be stable. I now took 1 more look around the entire knee, no residual debris. Instruments were now removed from the joint. The joint was infiltrated with .25% Marcaine. Steri-Strips were applied to the portal sites. Sterile dressings were applied. The patient was placed into a SUNDAR hose. No tourniquet was utilized. The patient was awakened, transferred to a bed and taken to recovery stable satisfactory condition.
[2023-07-23 13:41] VITALS: TEMP 96.9
[2023-07-23] MEDS: HYDROmorphone 0.5 MG/0.5 ML SYRINGE IVP PRN (13:47)
[2023-07-23 14:21] VITALS: RESP 18
[2023-07-23 15:03] VITALS: BP 114/69; PULSE 71
== END 2023-07-23 14:54 | disposition home or self-care (01) ==
LOC: OR 10:39
PROVIDERS: ATTEND Orthopaedic Surgery
DX: S83.242A Other tear of medial meniscus, current injury, left knee, initial encounter (principal); S83.512A Sprain of anterior cruciate ligament of left knee, initial encounter; M94.262 Chondromalacia, left knee; J45.909 Unspecified asthma, uncomplicated; G47.33 Obstructive sleep apnea (adult) (pediatric); M65.862 Other synovitis and tenosynovitis, left lower leg; I10 Essential (primary) hypertension; I48.91 Unspecified atrial fibrillation; Z79.01 Long term (current) use of anticoagulants; Z79.899 Other long term (current) drug therapy; X58.XXXA Exposure to other specified factors, initial encounter
CPT/HCPCS: 29881; 29879; J2250; J0330; J1100; J0690; J2405; J2001; J3010; J1885; J2704; J1170; J0665

== ENCOUNTER → 2024-06-03 | Outpatient (CLI) | payer OTHER ==
--- NOTE | 2024-06-05 15:07 | MR ---
EXAMINATION TYPE: MR knee RT wo con DATE OF EXAM: 06/03/2024 8:28 PM COMPARISON: Plain film. CLINICAL INDICATION: Male, 58 years old with history of S83.91XD SPRAIN OF UNSPECIFIED SITE OF RIGHT KNEE; , Right knee pain, Injured at work stepped off forklift and knee popped, Hx ACL repair RT knee TECHNIQUE: Multi planar, multi sequence imaging was performed of the knee including: Triplane proton density fat-saturated images and T1-weighted imaging. No Gadolinium was given. IV Contrast: mL (none if empty) FINDINGS: Medial meniscus: Degenerative posterior horn with multilevel directional tear multidirectional te ar of the body also present. Medial femorotibial cartilage: Grade-III chondromalacia. Medial collateral ligament: Intact Lateral meniscus: Horizontal tear of the posterior horn. Lateral femorotibial cartilage: Grade-I chondromalacia. Lateral collateral ligament complex: Intact Patellofemoral alignment: Normal Patellofemoral cartilage: Grade-III chondromalacia. Extensor mechanism: Intact. Joint/bursal fluid: Small moderate joint effusion present. Joint body measuring up to 12 mm in th e suprapatellar medial recess. Muscles/tendons: Post ACL repair changes with hardware anchors in the femur and tibia anchor not defi nitely seen connecting the 2r anchors.. PCL is intact. The patellar tendon, quadriceps tendon, IT ban d, pes anserinus tendons, semimembranosus tendon, popliteus tendon, and biceps femoris tendon are all within normal limits. Bone marrow: Normal. Anterior cruciate ligament: Intact. Posterior cruciate ligament: Intact. Soft tissues: Small amount of edema in Hoffa's fat pad noted. IMPRESSION: 1. Postsurgical changes of the ACL with out graft seen connecting the anchors of the knee. Findings suggest ACL repair failure. 2. Lateral meniscus posterior horn horizontal tear 3. Medial meniscus posterior horn and body multidirectional tear with diffuse abnormal appearance. 4. Hoffa fat pad edema correlate for infrapatellar fat pad impingement. 5. Joint body in the suprapatellar recess is noted 12 mm. [facility], , 06/05/2024 3:05 PM
== END | disposition home or self-care (01) ==
LOC: RADMRIMAIN 20:00
PROVIDERS: ATTEND Emergency Medicine
DX: S83.91XD Sprain of unspecified site of right knee, subsequent encounter (principal); S83.281D Other tear of lateral meniscus, current injury, right knee, subsequent encounter; R60.0 Localized edema